=== PATIENT | female | born 1945 | race Caucasian/White ===

== ENCOUNTER 2016-04-22 01:22 | Inpatient (IN) | payer MEDICARE ==
[~2016-04-22] VITALS: Ht 160 cm; Wt 117.8 kg
[2016-04-22] VITALS (19 sets, daily range): BP systolic 117–147; BP diastolic 50–64; PULSE 63–73; RESP 12–22; O2SAT 92–99
[~2016-04-22 01:22] MED LIST: ALLO300T2 PO; AMLO5TAB2 PO; ASPI-973 PO; ATEN50TA PO; CLOP75TA3 PO; DULO60CA42 PO; FAMO40TA6 PO; INSU100I18 SUBQ; NITR0.4T SL; PRAV80TA2 PO; UBID200C2 PO; Vitamin B-12 PO
[2016-04-22] MEDS ORDERED: 0.9% Sodium Chloride 1,000 ML IV ONE (06:50)
[2016-04-22 08:02] LABS: BASOPHILS % (AUTO) 0.3 % (0-3); EOSINOPHILS % (AUTO) 3.4 % (0-5); MONOCYTES % (AUTO) 5.3 % (4-12); Mean Corpuscular Hemoglobin 28.3 pg (27.0-35.0); Mean Corpuscular Volume 89.9 fL (81-100); NEUTROPHILS % (AUTO) 67.2 % (40-74); Platelet Count 259 bil/L (150-400)
[2016-04-22] MEDS: Sodium Chloride LOK Flush 10 mL Syringe IVFLUSH SCH ×2 (08:30→18:25)
[2016-04-22] MEDS ORDERED: Heparin 1,000 Unit/mL 10 mL Inj ONE ×3 (08:46→10:20)
[2016-04-22] MEDS ORDERED: Heparin 1,000 Units/500 mL NS Premix IV ONE (08:46)
[2016-04-22] MEDS ORDERED: 0.9% Sodium Chloride 1,000 ML ONE (08:46)
[2016-04-22] MEDS ORDERED: Nitroglycerin 50,000 mcg/250 mL D5W Premix IV ONE (08:47)
[2016-04-22 09:26] LABS: APPEARANCE,URINE HAZY (CLEAR,HAZY); COLOR,URINE STRAW (YELLOW); OCCULT BLOOD,URINE TRACE (NEGATIVE); UROBILINOGEN,URINE NORMAL (NORMAL)
[2016-04-22] MEDS ORDERED: fentaNYL-PF 50 mCg/mL 2 mL Inj ONE (09:36)
--- NOTE | 2016-04-22 09:52 | NUR ---
MARGIE Admit to [facility] 3 at 0740. at bedside. Patient denies pain. HL X 2 placed, NS at 100cc/hr, labs obtained and MD informed. Urine dip done with negative results. UA sent. Consent confirmed. History and medications reviewed. Pre-procedure teaching done and questions answered.
[2016-04-22] MEDS ORDERED: Atropine 1 mg/10 mL (Code) Syringe ONE (10:19)
[2016-04-22] MEDS ORDERED: Alum-Mag Hydrox-Simeth 30 mL Suspension ONE (11:30)
--- NOTE | 2016-04-22 11:40 | DI95 ---
[address] [address] INTERVENTIONAL CARDIAC CATHETERIZATION PATIENT: CRISTHIAN ARREDONDO : 1945 MR#: [id number] ADMIT: 04/22/2016 JOB ID: [id number] PROCEDURE: Selective right and left coronary angiography, left heart catheterization, percutaneous intervention on the LAD, diagonal, and on 1st obtuse marginal branch of the circumflex. INDICATION: Recurrent chest pain. Known coronary artery disease. PROCEDURAL DETAILS: These are well enumerated in the procedure log, to which the reader is referred. Briefly, a right femoral approach, 6-Vietnamese system. ANGIOGRAPHIC FINDINGS: 1. Left main: No significant disease. 2. LAD is a moderate caliber transapical vessel. It has stents in its mid to proximal portion. These stents are patent. In the mid to distal part there is an eccentric 40% lesion. The first major diagonal has a tight 90% lesion in its ostium. This seems to have progressed. 3. Circumflex is nondominant. The first obtuse marginal branch, which is about a 2 mm vessel, has a long tubular stenosis of 90+%. Previously placed stents in the circumflex are patent as well. 4. Right coronary artery is dominant. It has mild diffuse disease of 20%-30%. PDA has 20%-30% lesion. No critical stenosis is noted. 5. Left heart catheterization revealed an LVEDP of 13. There was no gradient upon pullback. Contractility is preserved. Ejection fraction is estimated to be around 65%. INTERVENTIONAL DETAILS: We then took a Voda guide and placed a Runthrough wire in the diagonal branch and a BMW in the LAD. Balloon inflations with a 2.0 balloon was done in the LAD and then kissing balloon inflations were done. There was a lot of elastic recoil, and not unexpectedly there was also probable dissection in the ostium of the diagonal. This was tackled with prolonged balloon inflations with a 2.25 balloon. Following that, simultaneous kissing balloon inflations were done in the diagonal and the LAD. There was about a 30%-40% residual in the ostium of the LAD; however, I did not want to put a stent in the diagonal and hence accepted this result. We then proceeded ahead with an intervention on the obtuse marginal branch. OM was treated with balloon angioplasty with a 1.5 balloon. I deliberately chose not to stent this small caliber vessel as it would have required a long area of stenting that would have extended all the way up to the ostium of this vessel. Final angiographic results in this vessel were also acceptable. In summary, successful two-vessel balloon angioplasty.
[2016-04-22] MEDS ORDERED: Atropine 1 mg/10 mL (Code) Syringe IVPUSH PRN (12:30)
[2016-04-22] MEDS ORDERED: Alum-Mag Hydrox-Simeth 30 mL Suspension PO ONE (12:30)
[2016-04-22] MEDS ORDERED: 0.9% Sodium Chloride 250 ML BOLUS IV PRN (12:30)
[2016-04-22] MEDS ORDERED: Sodium Chloride LOK Flush 10 mL Syringe IVFLUSH PRN (12:30)
[2016-04-22] MEDS ORDERED: Ondansetron 2 mg/mL 2 mL Inj IVPUSH PRN (12:30)
[2016-04-22] MEDS ORDERED: 0.9% Sodium Chloride 400 ML (4 HRS) IV ONE (12:30)
--- NOTE | 2016-04-22 14:31 | NUR ---
[facility] to [facility] Patient arrived to room 2004 at approximately 1415. No pain on palp at right groin site, soft to the touch, no bleeding. Pt able ambulate to bathroom with SBA. Right groin site checked post bathroom, soft to touch, no pain on palp, no signs of bleeding. Pt resting comfortably with at bedside. Addendum: 04/24/16 at 1116 by SHYLA IRVIN RN Strong bilateral pulses upon arrival from [facility].
--- NOTE | 2016-04-22 14:37 | NUR ---
MARGIE Patient return from [facility] at 1125. at bedside. Right groin angioseal without bleeding or hematoma. Pedal pulses present. Patient denies pain but C/O heartburn. Mylanta 30cc resolved heartburn. Patient sleeping but wakes to voice. Transfer to room 2004 by bed at 1400. Report to receiving RN. Addendum: 04/22/16 at 1503 by SHYLA IRVIN RN Strong bilateral pedal pulses.
--- NOTE | 2016-04-22 15:58 | NUR ---
Floyd This RN applied the Zio patch to left upper chest at approximately 1550. Education given with information packet.
[2016-04-22] MEDS: Vitamin B Complex/Vit C Tablet PO SCH (18:26)
[2016-04-22] MEDS: Insulin Human REGular 300 Unit/3 mL Inj - Medium SUBQ SCH ×2 (18:50→21:24)
[2016-04-22] MEDS: DULoxetine 30 mg DR Capsule PO SCH (20:13)
[2016-04-23] VITALS (9 sets, daily range): BP systolic 125–165; BP diastolic 62–82; PULSE 71–85; RESP 17–21; O2SAT 91–97
--- NOTE | 2016-04-23 00:09 | NUR ---
BLOOD SUGARS Pt A&Ox3, independent, right groin site CDI, non-tender. Pt Q6 BS checks BS 191 @ HS 1 unit given. Vitals stable, no pain, uneventful night, no other issues noted at this time. Addendum: 04/23/16 at 0420 by LETY LEGGETT RN BLOOD SUGARS Pt's blood sugars @ 0230 were 247, pt requested 5 units, pt stated that 3 units per protocol would not cover it. Pt received 5 units with no other issues noted.
[2016-04-23] MEDS: Insulin Human REGular 300 Unit/3 mL Inj - Medium SUBQ SCH ×4 (03:29→18:28)
[2016-04-23] MEDS: Sodium Chloride LOK Flush 10 mL Syringe IVFLUSH SCH ×3 (03:29→16:41)
[2016-04-23] MEDS: Vitamin B Complex/Vit C Tablet PO SCH (09:07)
[2016-04-23] MEDS ORDERED: LIP40 PO (10:16)
--- NOTE | 2016-04-23 10:27 | PCM.DIMED ---
Discharge Instructions Date of Service Apr 23, 2016 Dates of Hospitalization 04/22/2016 Discharge Diagnosis Discharge Diagnosis CAD - post Stenting to coronary arteries Medication Instructions take all medications as prescribed Diet Low fat, Low Sodium, Heart Healthy, Diabetic Activity Other (Refer to hospital instruction sheet. Avoid lifting over 10 lbs, vigorous activity for a week. No bathing in a tub for a week. You may shower and clean gently with soap and water to the right groin tomorrow. You may drive starting on Monday. ) Call your provider Fever or Chills, Shortness of breath, Bleeding, Chest pain, Weakness (unilateral ), Other (Numbness tingling or pain in the right leg or foot. Monitor for fever chills. Call this office if any questions.) Patient Instructions Follow-up plan We will arrange for a recheck of your kidney functions and electrolytes for monday the . Call the office in the afternoon ) if you have not heard from us yet. Follow in the office in the next few weeks ( you will be called with an appointment time) Provider: Yo Carter MD Follow-up in: 6 weeks Mid-level Provider (F9): Dano Palencia PA-C Follow-up with Mid-level in: 2 weeks Dano Palencia PA-C Apr 23, 2016 10:27
--- NOTE | 2016-04-23 12:36 | PCM.PNCARD ---
Subjective Date of service Apr 23, 2016 Chief Complaint CAD History of Present Illness Mrs. Callahan 70-year-old woman with known history of coronary artery disease and insulin-dependent diabetes. She had recently been seen in the office by Dr. Carter where he noted an increase in her anginal symptoms. He elected to bring her to the [facility] on 04/22/2016 at which point he performed PCI / balloon angioplasty to her LAD, 1st diagonal and first OM. His dictation from the procedure mentions probable dissection in the ostium of the diagonal which was tacked with prolonged balloon inflations. No stenting was performed. Subjective: # General - denies fever chills. Had some insomnia last night # NECK-denies pain or swollen glands # Chest-denies dyspnea, cough. Admits to left upper chest wall tenderness to palpation with some radiation to her back. # CV-no recurring anginal pain. Minor swelling noted in her legs. Denies coldness to extremities. # Abdomen- denies focal pain # -claims urinary output has been decreased, no urgency frequency. # Neuro-denies numbness tingling or weakness to extremities # Integument-denies bruising, discoloration. Exam Vital Signs Vital Sign - Last Date Time Temp Pulse Resp B/P Pulse Ox O2 Delivery O2 Flow Rate FiO2 04/23/16 09:04 85 04/23/16 07:47 36.8 17 125/62 91 Room Air 04/22/16 14:01 2.00 Intake and Output 04/22/16 04/22/16 04/23/16 Cumulative From/Thru 15:00 23:00 07:00 04/22/16 08:23 - 04/23/16 04:01 Intake Total 775 ml 600 ml 1375 ml Balance 775 ml 600 ml 1375 ml Intake Oral 400 ml 600 ml 1000 ml IV Total 375 ml 375 ml # Voids 1 3 4 Additional Information: # General- sitting up in bed in no apparent distress. # HEENT-eyes clear PERRLA # Chest-clear to auscultation bilaterally # CV-regular rate and rhythm without murmur, gallop or rub. Lower extremities appropriately warm with normal pulses distally. No bruit or significant hematoma to right groin. Trace to 1+ edema lower extremities # Abdomen-soft nontender. # Neuro-appropriate sensation to touch and normal motor to right lower extremity. # Integument-no significant bruising or hematoma to right groin. Integument otherwise benign. Lab and Diagnostics Result Diagram: 04/22/16 0758 04/23/16 1000 12-lead ECG Telemetry benign overnight. Assessment & Plan Assessment This patient is a 70-year-old woman with history of CAD recent PCI /balloon angioplasty to her LAD, first diagonal and first OM. It was probable dissection in the ostium of the diagonal branch. She also has insulin- dependent diabetes. Patient rested comfortably overnight although reportedly did not sleep much. She has been having left sided chest tenderness to palpation but no classic anginal symptoms. She denies palpitation. She claims she has been drinking "a lot of fluids" but has not been producing much urine. Basic metabolic panel shows worsening renal functions/progressively elevating creatinine and a stable yet elevated potassium. Unfortunately her urine output has not been measured thus far during her stay. From a cardiac standpoint she appears to be stable however her declining renal functions are somewhat concerning. The nurse did report an elevated temperature however upon reevaluating the patient appears an axillary reading was used. I personally rechecked her temperature and it was 98.3. On April 22 she did have an elevated white blood cell count. I will repeat a CBC tomorrow morning and reevaluate her at that time. Problems: Plan #CAD -continue with clopidogrel 75 mg daily, aspirin 81 mg daily. Continue with her pravastatin 80 mg daily while in the hospital. I will be changing this to atorvastatin 40 mg one half to one pill daily as tolerated upon discharge. #Hypertension- continue amlodipine 5 mg twice a day, atenolol 50 mg twice a day. #Acute renal insufficiency- we will have her push oral fluids as tolerated. Recheck BMP in the morning. Closely monitor her fluid intake and output. Daily bedside standing weight checks while she is here. #Insulin-dependent diabetes mellitus- continue with glucose monitoring and insulin per sliding scale protocol. #Leukocytosis- noted on labs from 04/22. I will repeat these in the morning. If symptoms of infection should appear will ask hospitalist to help evaluate further. Discharge Plan: We will keep her overnight to reevaluate BMP and see cbc in the morning. Plan we will be to continue to hydrate her with oral fluids and discharge on 2016 if renal functions are stable or resolving. Attending Statement I have interviewed and examined the patient, and discussed with Lenny Palencia. Agree with above. Will await results of labs tomorrow. She states she had poor po intake several days before procedure due to viral illness and thus may be volume contracted. Dano Palencia PA-C Apr 23, 2016 11:49 Dano Bartlett MD Apr 23, 2016 16:53
[2016-04-23] MEDS: DULoxetine 30 mg DR Capsule PO SCH (20:07)
--- NOTE | 2016-04-23 22:12 | NUR ---
CREATININE/POTASSIUM/OUTPUT Pt's labs this morning showed an increased creatinine @ 1.63 and K+ @ 5.5. Pt's I&O's on day shift were 600+ in and 850 out. Pt is otherwise feeling great. Pt denies pain, right groin site is CDI with no signs of hematoma. Pt was encouraged to continue to drink plenty of fluids and was informed that she would have labs drawn in the AM to revaluate for discharge tomorrow. Addendum: 04/24/16 at 0408 by LETY LEGGETT RN LABS AM labs show K+, BUN and Creat. trending up. K+ 5.7 BUN 54 Creatinine 2.86 GFR trending down to 23.
[2016-04-24] VITALS (9 sets, daily range): BP systolic 123–149; BP diastolic 56–81; PULSE 71–87; RESP 16–20; O2SAT 92–97
[2016-04-24] MEDS: Sodium Chloride LOK Flush 10 mL Syringe IVFLUSH SCH ×3 (00:30→15:28)
[2016-04-24] MEDS: Insulin Human REGular 300 Unit/3 mL Inj - Medium SUBQ SCH ×2 (03:35→09:08)
[2016-04-24] MEDS: Vitamin B Complex/Vit C Tablet PO SCH (09:09)
[2016-04-24 09:11] LABS: Mean Corpuscular Hemoglobin 28.5 pg (27.0-35.0); Mean Corpuscular Volume 87.4 fL (81-100)
--- NOTE | 2016-04-24 10:04 | DRSVH ---
PROCEDURE: X-RAY CHEST, TWO VIEWS ([id number]) INDICATIONS: r/o effusion vs. chf TECHNIQUE: 2 views of the chest were acquired. COMPARISON: None. FINDINGS: Surgical changes and devices: surg rn leads are seen over the chest. Lungs and pleura: There are increased interstitial markings. There is some thickening of the fissures and no pleural effusions. Mediastinum: Mediastinal contours are normal. Heart size is normal. Bones and chest wall: No suspicious bony abnormalities. Soft tissues appear unremarkable. IMPRESSION: Interstitial pulmonary edema is occurring. Dictated by: Romulo Marc M.D. on 04/24/2016 at 10:01 Approved by: Romulo Marc M.D. on 04/24/2016 at 10:02
--- NOTE | 2016-04-24 11:16 | NUR ---
Not feeling well Patient stated she felt flu-like, like she had a fever. Stated she was shivering. Skin temp felt warm. t 36.8, BP 123/62, P 81. Room temperature was set at 75 degrees with door closed. Listened and encouraged. Provided water and offered warm blanket. Care continues.
--- NOTE | 2016-04-24 12:23 | NUR ---
Social Work: Initial Assessment D: Per EMR review, pt is a 70 year old female here for scheduled heart cath procedure on 04/22; pt made inpatient on 04/24 due to declining renal function. Pt is [facility] Medicare with no LTC insurance or VA benefits. PCP is Dr. Abhilash Wang. NOK is Charlie Callahan, spouse, . Advanced directives not completed- information provided by HOME ADMINISTRATOR. Readmit not entered at this time. HOME ADMINISTRATOR met with pt at bedside. Sw role and information provided. See initial assessment. Pt lives with her spouse in a split-level home in [place]. Pt is I with ADLs and uses no DME. Pt states she has approx. 8 stairs to enter her home and 7-8 stairs in her home. Pt does not drive and relies on her spouse for transport. Pt has never had HH or jail. Pt anticipates no home needs at discharge but provided with HH choice list to review. A: Pt who is I at baseline. P: Evolving; Anticipate pt to discharge home via POV with no sw needs; HOME ADMINISTRATOR to continue to follow and r/o HH or SNF if pt's needs advance. IVAN Philippe Addendum: 04/24/16 at 1237 by BRYSON VARGAS Amended: Links added.
--- NOTE | 2016-04-24 12:32 | PCM.PNCARD ---
Subjective Date of service Apr 24, 2016 Chief Complaint CAD History of Present Illness Mrs. Callahan 70-year-old woman with known history of coronary artery disease and insulin-dependent diabetes. She had recently been seen in the office by Dr. Carter where he noted an increase in her anginal symptoms. He elected to bring her to the [facility] on 04/22/2016 at which point he performed PCI / balloon angioplasty to her LAD, 1st diagonal and first OM. His dictation from the procedure mentions probable dissection in the ostium of the diagonal which was tacked with prolonged balloon inflations. No stenting was performed. Patient was initially kept overnight and monitored. Although she reports feeling relatively well from a cardiac standpoint she reported some mild headache and sinus pressure. More concerning, her renal functions deteriorated with subsequent elevation of her potassium. Speaking with Dr. Bartlett we elected to keep her another night to closely monitor renal functions. Review of labs this morning shows progressive GILES with presumed ATN most likely related to her diabetes and the contrast from the heart catheterization. She reports this morning feeling a little bit more dyspnea over night slight cough. Progression of her headache symptoms associated with post nasal drip, sinus pressure and fullness in her right ear and pressure behind her right eye. She denies chest pain or palpitation. She has not noticed increased edema. She claims she is having normal bowel movements without melena or blood. She feels her urine output is decreased but denies urgency or frequency. She denies sx to right groin or right leg. Subjective: Review of systems negative other than mentioned above. Exam Vital Signs Vital Sign - Last Date Time Temp Pulse Resp B/P Pulse Ox O2 Delivery O2 Flow Rate FiO2 04/24/16 09:04 36.8 81 20 123/62 95 04/24/16 04:42 Room Air 04/22/16 14:01 2.00 Intake and Output 04/23/16 04/23/16 04/24/16 Cumulative From/Thru 15:00 23:00 07:00 04/22/16 08:23 - 04/24/16 04:42 Intake Total 600 ml 440 ml 2415 ml Output Total 850 ml 550 ml 1400 ml Balance -250 ml -110 ml 1015 ml Intake Oral 600 ml 440 ml 2040 ml IV Total 375 ml Output Urine Total 850 ml 550 ml 1400 ml # Voids 4 Additional Information: # Gen. patient sitting quietly appears in good spirits, no apparent distress. # HEENT- eyes clear PERRLA pharynx moist benign without significant erythema or postnasal drip. # Neck - supple without adenopathy or tenderness. # Chest- slight crackles left lower lobe, otherwise CTA. # Cardiovascular- regular rate and rhythm without murmur click or rub, gallop. 1+ edema lower extremities pulses 2+ DP legs. # Abdomen- soft nontender # Integument- benign # Neurologic- alert and oriented 4, nonfocal for deficit. # Psych- mood appropriate for situation. Lab and Diagnostics Result Diagram: 04/24/1690104/24/16 022 X-Rays, CTs and MRIs RADIOLOGIST IMPRESSION: Interstitial pulmonary edema is occurring. Assessment & Plan Assessment This patient is a 70-year-old woman with history of CAD recent PCI /balloon angioplasty to her LAD, first diagonal and first OM. It was probable dissection in the ostium of the diagonal branch. She also has insulin- dependent diabetes. Patient is complaining of worsening headache and sinus symptoms. There is question of mild transient fever in the last 24 hours. At this point we are more concerned with her progressively worsening renal functions, GILES with probable ATN secondary to diabetes and contrast media during PCI. Problems: Plan #CAD -continue with clopidogrel 75 mg daily, aspirin 81 mg daily. Continue with her pravastatin 80 mg daily while in the hospital. I will be changing this to atorvastatin 40 mg one half to one pill daily as tolerated upon discharge. #Hypertension- continue amlodipine 5 mg twice a day, atenolol 50 mg twice a day. #Acute renal insufficiency and probable ATN-renal functions deteriorated further overnight with an associated increase in potassium. In light of this I have kindly asked the hospitalist Dr. Cornejo to assist with management. BMP and BNP are ordered this morning with creatinine continuing to trend upward/ BUN stable but elevated. Closely monitor her fluid intake and output. Daily bedside standing weight checks while she is here. Dr Cornejo to evaluate GILES and considering Nephrology consult given current significant worsening trend. #Headache/sinus pain with possible transient temperature elevation- I have asked Dr. Cornejo to evaluate to evaluate the patient further for infectious process. #Insulin-dependent diabetes mellitus- further management and control per hospitalist. #Hyperkalemia- in the setting of giles. This is stable ( decreased back to 5.5) EKG is stable. Potassium elevation may respond to gentle diuresis. Discussed with Dr Bartlett and Dr Cornejo. Dr Cornejo considering Nephrology consult. Attending Statement Patient interviewed and examined, discussed with Lenny Palencia PA-C, and Dr. Steven Cornejo. Agree with above. Now has acute on chronic kidney failure, likely due to contrast nephropathy. Asymptomatic except mild SOB and reported wheezing and "abdominal fullness". On my exam, lungs clear without rales or wheeze, JVP likely 7-8 cm. ECG shows no concerning changes of hyperkalemia. Agree with nephrology consult and attempt diuresis with furosemide, follow renal fxn and potassium. Dr. Carter will be available tomorrow to see Dano Al PA-C Apr 24, 2016 09:49 Dano Bartlett MD Apr 24, 2016 15:09
[2016-04-24] MEDS ORDERED: Glucose 40% Oral Gel 15 Gm Tube PO PRN (13:10)
[2016-04-24] MEDS ORDERED: Furosemide 10 mg/mL 4 mL Inj IVPUSH ONE (14:25)
--- NOTE | 2016-04-24 14:36 | PCM.HPMED ---
Subjective Date of Service Apr 24, 2016 Primary Provider: Admitting Physician: Primary Care Physician: Katya,Physician Attending Physician: Yo Carter MD Chief Complaint: 70-year-old woman with CAD, type II diabetes mellitus, hypertension, obesity class III presents with acute kidney injury following percutaneous cardiac intervention on 04/22 History of Present Illness: The patient was in her usual state of health when she presented for elective cardiac PCI on 04/22. She experienced recent unstable angina with increasing frequency and slight increase in duration of her usual chest pain complaint. Typically her chest pain occurs with effort and resolves with one nitroglycerin within 5 minutes. She underwent PCI with balloon angioplasty of the LAD, diagonal and OM. She has had no chest pain since. Follow-up blood tests reveal rising creatinine from baseline of 1.19 prior to procedure currently to 3.2. She is admitted for management of acute kidney injury. In the last 24 hours she notes increased shortness of breath with mild orthopnea. She noted wheezing and cough yesterday which is unusual for her. She endorses some lower left back pain with coughing, but this is different from her anginal complaint which is anterior chest pain. She also feels she is having sinus congestion, fevers and chills, loss of appetite, and mild discomfort in sinuses, according to which side she sleeps on. She states she had a protracted URI 6 weeks ago which resolved only after antibiotics personally 3 weeks prior to admission. She states that her current symptoms feel similar to that. She currently notes reduced urine output. She has had nephrolithiasis in the past but no recent symptomatic renal colic. She has no prior history of parenchymal renal disease. She has had long-standing type II diabetes but is not known to have diabetic nephropathy. She does have diabetic neuropathy. Review of Systems: 10 system ROS was performed and significant findings are noted in the history of present illness and PMH Allergies Coded Allergies: tetracycline (Verified Allergy, Severe, 04/21/16) sodium phosphate (Verified Allergy, Unknown, 04/21/16) [id number]-Xrz Reductase Inhibitor (Verified Adverse Reaction, Severe, ) Sulfa (Sulfonamide Antibiotics) (Verified Adverse Reaction, Severe, ) acetaminophen (Unverified Adverse Reaction, Severe, 06/24/13) codeine (Verified Adverse Reaction, Severe, 06/24/13) dexamethasone (Verified Adverse Reaction, Severe, 06/24/13) doxycycline (Unverified Adverse Reaction, Severe, 06/24/13) hydrocodone (Unverified Adverse Reaction, Severe, 06/24/13) lisinopril (Unverified Adverse Reaction, Severe, 04/21/16) oxycodone (Unverified Adverse Reaction, Severe, 06/24/13) Adhesives (Unverified Adverse Reaction, Unknown, 06/24/13) Uncoded Allergies: a reductase inhibitors (Allergy, Unknown, 04/21/16) bitartrate (Allergy, Unknown, 04/21/16) Home Medications Allopurinol 300 mg daily Amlodipine 10 mg daily Aspirin 81 mg daily Atenolol 550 mg twice a day Atorvastatin 40 mg daily Clopidogrel 75 mg daily Duloxetine 60 mg daily Famotidine 40 mg twice a day Insulin N 60 units twice a day, insulin lispro 30 units twice a day Pravastatin 80 mg daily at bedtime Nitroglycerin when necessary Vitamin B12 by mouth daily PMH # coronary artery disease - status post RCA stent in 2014, LVEF was 70% at that time # Type II diabetes mellitus # Hypertension # DJD # obesity class III # History of nephrolithiasis #hyperuricemia Family History No familial incidence of renal failure 3 children alive and well Social History Occupation: retired Hx Alcohol Use: No Hx Substance Use: No Smoking Status: Former Smoker Living Arrangement: with Family Additional Information Very sedentary. Lives with . Balanced diet. Exam Vital Signs Vital Sign - Last Date Time Temp Pulse Resp B/P Pulse Ox O2 Delivery O2 Flow Rate FiO2 04/24/16 11:38 36.9 84 16 141/81 92 Room Air 04/22/16 14:01 2.00 Intake and Output 04/23/16 04/23/16 04/24/16 Cumulative From/Thru 15:00 23:00 07:00 04/22/16 08:23 - 04/24/16 04:42 Intake Total 600 ml 440 ml 2415 ml Output Total 850 ml 550 ml 1400 ml Balance -250 ml -110 ml 1015 ml Intake Oral 600 ml 440 ml 2040 ml IV Total 375 ml Output Urine Total 850 ml 550 ml 1400 ml # Voids 4 Exam Constitutional: Obese woman appears comfortable; no acute distress; vital signs noted Eyes: sclerae anicteric, no conjunctival pallor, ENMT: ears, nose atraumatic; oral mucosa moist Neck: supple, difficult to assess JVP Chest: symmetric, no pain or lesions Resp: auscultation clear, no wheezes, rales or dullness Cardiac: S1, S2, regular, no murmur Abdomen: bowel sounds present, nontender, no organomegaly Musculoskeletal: no joints with acute erythema, swelling Skin and soft tissues: no rash; no pitting edema Peripheral pulses: normal at wrist, feet Lymphatic: no adenopathy cervical Neurological: Cranial Nerves - face symmetric Reflexes - BJ, KJ symmetric diminished Motor - 5/5 strength, normal tone Coordination - normal movement, no tremor Sensory - light touch intact, monofilament 12/12 Psych & Mental Status - oriented Lab and Diagnostics Labs Serum creatinine baseline 1.19 ProBNP 5975 Result Diagram: 04/24/1690104/24/16901 X-Rays, CTs and MRIs PROCEDURE: X-RAY CHEST, TWO VIEWS ([id number]) IMPRESSION: Interstitial pulmonary edema is occurring. Dictated by: Romulo Marc M.D. on 04/24/2016 at 10:01 . Additional Diagnostics: INTERVENTIONAL CARDIAC CATHETERIZATION PATIENT: CRISTHIAN ARREDONDO : 1945 ANGIOGRAPHIC FINDINGS: 1. Left main: No significant disease. 2. LAD is a moderate caliber transapical vessel. It has stents in its mid to proximal portion. These stents are patent. In the mid to distal part there is an eccentric 40% lesion. The first major diagonal has a tight 90% lesion in its ostium. This seems to have progressed. 3. Circumflex is nondominant. The first obtuse marginal branch, which is about a 2 mm vessel, has a long tubular stenosis of 90+%. Previously placed stents in the circumflex are patent as well. 4. Right coronary artery is dominant. It has mild diffuse disease of 20%-30%. PDA has 20%-30% lesion. No critical stenosis is noted. 5. Left heart catheterization revealed an LVEDP of 13. There was no gradient upon pullback. Contractility is preserved. Ejection fraction is estimated to be around 65%. INTERVENTIONAL DETAILS: We then took a Voda guide and placed a Runthrough wire in the diagonal branch and a BMW in the LAD. Balloon inflations with a 2.0 balloon was done in the LAD and then kissing balloon inflations were done. There was a lot of elastic recoil, and not unexpectedly there was also probable dissection in the ostium of the diagonal. This was tackled with prolonged balloon inflations with a 2.25 balloon. Following that, simultaneous kissing balloon inflations were done in the diagonal and the LAD. There was about a 30%-40% residual in the ostium of the LAD; however, I did not want to put a stent in the diagonal and hence accepted this result. We then proceeded ahead with an intervention on the obtuse marginal branch. OM was treated with balloon angioplasty with a 1.5 balloon. I deliberately chose not to stent this small caliber vessel as it would have required a long area of stenting that would have extended all the way up to the ostium of this vessel. Final angiographic results in this vessel were also acceptable. In summary, successful two-vessel balloon angioplasty. Yo Carter MD 04/22/16 1112 . Assessment & Plan 70-year-old woman with diabetes, hypertension, morbid obesity and CAD presents with post PCI acute kidney injury Active and/or high risk problems: # Acute kidney injury, present on admission. Probable ATN due to dye load, no evidence of hypotensive insult. Currently patient seems oliguric with some evidence of fluid overload. Patient previously on famotidine but no current drug suspicious for eosinophilic interstitial nephritis, no fever. History of nephrolithiasis but coincidental obstructive nephropathy at this time seems unlikely. - Urine for fractional excretion of sodium - Renal ultrasound - Nephrology consult - Daily electrolyte panel - We will not initiate IV fluids at this time due to evidence of fluid overload - Allopurinol renal dose adjustment # Coronary artery disease - Continue dual antiplatelet therapy - Monitor symptoms - Cardiology following # Acute diastolic congestive heart failure. Her current symptoms of orthopnea and cough with chest x-ray revealing pulmonary congestion are consistent with congestive heart failure. Recent echocardiograms have been normal LVEF. Likely diastolic dysfunction due to hypertension and type II diabetes. - Diuretic management, to be guided by nephrology health management consultant - Other cardiac medications as per the cardiology service # Type II diabetes mellitus - 4 times a day capillary blood glucose - Glucose control goals: Random less than 180, fasting less than 140, none less than 70 - Insulin as needed, divided 50-50 long-acting and nutritional/correctional Stable and/or resolving problems: # Hypertension - Continue current medications - amlodipine, atenolol # Diabetic neuropathy - Continue duloxetine Pain Evaluation: Adequate Pain Control VTE Prophylaxis: Sub-Q Heparin (Unfractionated) Resuscitation Status: CPR: Attempt Resuscitation Time spent 60 minutes Jarett Cornejo MD Apr 24, 2016 14:36
--- NOTE | 2016-04-24 15:30 | DRSVH ---
PROCEDURE: US RETROPERITONEAL SONOGRAM ([id number]) INDICATIONS: GILES TECHNIQUE: Real-time scanning was performed of the kidneys and bladder, with image documentation. COMPARISON: None. FINDINGS: Kidneys: Kidneys are normal in size. Right kidney measures 11.3 cm long; left kidney measures 13.8 cm long. Right renal cortical thickness is 1.1 cm; left renal cortical thickness is 1.1 cm. Renal c ortical echotexture is normal. No hydronephrosis or nephrolithiasis. No suspicious solid mass lesio ns. Bladder: Pre-void bladder volume is 164 mL. Post-void residual is 7 mL. Pre-void images demonstrat e no intraluminal masses or stones. On pre-void images, neither of the ureteral jets are noted with color Doppler interrogation. (Of note, ureteral jets may not be detectable in up to 25% of cases due to insufficient differences in specific gravity between ureteral and bladder urine). Miscellaneous: No free pelvic fluid. IMPRESSION: No abnormality is seen in either kidney. No evidence for obstruction. Cause of acute librado l failure is not appreciated. Dictated by: Romulo Marc M.D. on 04/24/2016 at 15:22 Approved by: Romulo Marc M.D. on 04/24/2016 at 15:28
--- NOTE | 2016-04-24 17:21 | CONS ---
[address] [address] CONSULTATION REPORT PATIENT: CRISTHIAN ARREDONDO : 1945 MR#: [id number] ADMIT: 04/22/2016 JOB ID: [id number] DATE OF SERVICE: REQUESTING PHYSICIAN: Dr. Cornejo REASON FOR CONSULTATION: 1. Management of abnormal kidney function. 2. Complaint of recurrent chest pain. PRESENT ILLNESS: This is a very pleasant, 70-year-old, lady with significant past medical history of type 2 diabetes, hypertension, dyslipidemia, coronary artery disease, status post stent placement who was admitted for an elective left heart catheterization. The patient was initially seen by Dr. Carter. Of note, she has had increase in her anginal symptoms. The patient was brought in to perform a left heart catheterization on April 22, 2016. She underwent PCI and balloon angioplasty to her LAD, 1st diagonal and 1st OM. Her initial serum creatinine prior to the procedure was 1.19. It has gradually elevated. The value today was 3.2. Of note, she has had persistent hyperkalemia. The current potassium level is 5.5. The patient is complaining of feeling weak and decreased urine output. The chest x-ray showed interstitial pulmonary edema. The patient stated that prior to the cardiac catheterization, she was sick possibly from the flu infection. The patient is not aware of having kidney disease. She does have significant past medical history of nephrolithiasis. She stated that she passed kidney stones, last episode was five years ago. She underwent cystoscopy and stone extraction a number of years ago. She had history of gout and probable uric acid stones in which she has been on allopurinol. She mentioned that two of her grandsons and granddaughter have history of kidney stones. She takes Aleve as needed, however, prior to the admission she did not take any of the pain medications. PAST MEDICAL HISTORY: 1. Obesity. 2. Type 2 diabetes. 3. Diabetic retinopathy. 4. Diabetic neuropathy. 5. Hypertension. 6. Dyslipidemia. 7. Coronary artery disease status post stenting and balloon angioplasty. 8. Fibromyalgia. 9. Gout. 10. Nephrolithiasis status post cystoscopy and stone extraction. 11. GERD. FAMILY HISTORY: She is adopted, unknown family history, however, two of her grandsons and a granddaughter had kidney stones. SOCIAL HISTORY: She is . ALLERGIES: 1. ADHESIVES. 2. STATIN. 3. SULFA. 4. ACETAMINOPHEN. 5. BITARTRATE. 6. CODEINE. 7. DEXAMETHASONE. 8. DOXYCYCLINE. 9. HYDROCODONE. 10. LISINOPRIL. 11. OXYCODONE. 12. SODIUM SULFATE. 13. TETRACYCLINE. REVIEW OF SYSTEMS: Constitutional: No fever, no chills. HEENT: No headaches. No blurred vision. Cardiovascular: No chest pain. No shortness of breath. Pulmonary: No cough. No hemoptysis. GI: No nausea, vomiting. : No dysuria. No hematuria. Decreased urine output. Skin: No rashes. No excoriation. Hematology: No active bleeding. No bruises. Endocrine: No polyuria, polydipsia. PHYSICAL EXAMINATION: Vitals: Temperature 36.9, pulse 84, respiratory rate 16, blood pressure 141/81, pulse is 92 on room air. General appearance: Awake, alert, oriented x3. In no acute distress. Very pleasant. HEENT: No pallor, no jaundice, no JVD, no lymphadenopathy. No thyroid enlargement. PERRLA, atraumatic. Moist mucous membranes. Heart: Regular rhythm. Normal S1, S2. No murmurs, rubs, or gallops. Lungs: Decreased breath sounds at bases. No wheezing. No rhonchi. No rales. Abdomen is soft, obese, active bowel sounds. Nontender, nondistended. No hepatosplenomegaly. Extremities: 1+ edema on the lower extremities. Good dorsalis pedis pulses. No cholesterol emboli stigmata. LABORATORY: Sodium 136, potassium 5.5, chloride 97, bicarb 22, BUN 55, creatinine 3.2, glucose 218. ProBNP 5975. UA specific gravity 1.020, pH 6.0, protein 100, 0-2 RBCs, 0-5 WBCs, hemoglobin 11.3, WBC 12.3. ASSESSMENT: 1. Acute kidney injury. Her initial serum creatinine was 1.19. After the left heart catheterization, her serum creatinine has risen to 3.2 today. The patient is complaining of decreased urine output. She does not have significant shortness of breath. The etiology of acute kidney injury is likely due to contrast-induced nephropathy. Other possibly is cholesterol emboli. However, I think it is less likely. At this point, I will repeat her UA, check urine eosinophils, check urine protein to creatinine ratio, and order kidney sonogram to rule out obstruction given significant past history of nephrolithiasis. There is no indication for dialysis at this moment. We will continue supportive treatment. I will give her IV diuretics to see if it will enhance her urine output. IV diuretics would not change the course of the disease. I expect that her kidney function may rise higher tomorrow until it peaks and eventually will come down. Avoid nephrotoxins at this moment. I would not start an CECY inhibitor or ARB at this point until she is more stable. 2. Monitor her volume status and the kidney function on a daily basis. 3. Coronary artery disease status post stenting and balloon angioplasty. 4. Type 2 diabetes with diabetic retinopathy, possible diabetic nephropathy. Will order a urine protein creatinine ratio. 5. Hypertension. 6. Acute on chronic diastolic heart failure. Thank you, Dr. Cornejo, for allowing me to participate in the care of your patient. We will monitor along with you. MARIA A
[2016-04-24] MEDS ORDERED: Insulin LISPRO 300 Unit/3 mL Inj SUBQ SCH (17:30)
[2016-04-24] MEDS: Insulin LISPRO 300 Unit/3 mL Inj SUBQ SCH ×2 (17:40→20:34)
--- NOTE | 2016-04-24 17:44 | NUR ---
Urine out After administering Lasix, pt voided 550 ml, within one hour. Pt states her eyelids are more swollen than yesterday. Care continues.
[2016-04-24] MEDS: Insulin GLARgine 100 Unit/mL Syringe SUBQ SCH (20:33)
[2016-04-24] MEDS: DULoxetine 30 mg DR Capsule PO SCH (20:36)
[2016-04-24] MEDS ORDERED: Insulin GLARgine 100 Unit/mL Syringe SUBQ SCH (21:00)
[2016-04-25] VITALS (8 sets, daily range): BP systolic 106–138; BP diastolic 64–82; PULSE 76–98; RESP 16–20; O2SAT 87–98
[2016-04-25] MEDS: Sodium Chloride LOK Flush 10 mL Syringe IVFLUSH SCH ×3 (00:30→16:42)
--- NOTE | 2016-04-25 00:49 | NUR ---
OXYGEN/LOOSE STOOLS Pt was sating in the mid 80's while awake on second vital check. Pt c/o increased wheezing this evening, pt originally put on 2L nasal cannula, sat'd high 80's, increased to 4L nasal cannula, sating mid 90's. Pt reported first episode of loose stools while in the hospital. Pt did have a low grade temp of 99.3. No other issues noted at this time. Addendum: 04/25/16 at 0309 by LETY LEGGETT RN OXYGEN/LOOSE STOOLS Pt has had 2 loose stools @ this time. Pt removed 4L nasal cannula to use restroom and was sating high 70's to low 80's on RA. Continued with 4L nasal cannula throughout the night.
[2016-04-25 03:16] LABS: Magnesium 2.1 mg/dL (1.6-2.6); Phosphorus 5.7 mg/dL (2.5-4.9)
--- NOTE | 2016-04-25 04:08 | NUR ---
BLOOD SUGARS Pt had a new order for Lantus 90 units along with 4 units regular @ HS. Blood sugars were 253 and rechecked @ 0230 and were 209. Pt denies any s/s of hypo/hyperglycemia. No other issues noted @ this time.
--- NOTE | 2016-04-25 06:58 | PCM.PNMED ---
Subjective Date of Service Apr 25, 2016 Subjective Pt with inc oxygen demands, on 4L with overnight notable desaturations to low 80 's on RA - denies cp/f/dizziness/n/v - has been having some loose stool 4x - nonbloody Exam Vital Signs Vital Sign - Last Date Time Temp Pulse Resp B/P Pulse Ox O2 Delivery O2 Flow Rate FiO2 04/25/16 02:30 37.2 98 20 135/71 98 Nasal Cannula 4.00 Intake and Output 04/24/16 04/24/16 04/25/16 Cumulative From/Thru 15:00 23:00 07:00 04/22/16 08:23 - 04/25/16 06:13 Intake Total 840 ml 400 ml 3655 ml Output Total 1100 ml 600 ml 3100 ml Balance -260 ml -200 ml 555 ml Intake Oral 840 ml 400 ml 3280 ml IV Total 375 ml Output Urine Total 1100 ml 600 ml 3100 ml # Voids 2 6 # Bowel Movements 1 1 Exam Constitutional: Obese woman appears comfortable; no acute distress Eyes: sclerae anicteric, no conjunctival pallor, ENMT: ears, nose atraumatic; oral mucosa moist Neck: supple, difficult to assess JVP Chest: symmetric, no pain or lesions Resp: auscultation clear, no wheezes, rales or dullness Cardiac: S1, S2, regular, no murmur Abdomen: bowel sounds present, nontender, no organomegaly Musculoskeletal: no joints with acute erythema, swelling Skin and soft tissues: no rash; no pitting edema Peripheral pulses: normal at wrist, feet Lymphatic: no adenopathy cervical Neurological: CN 2-12 GI IVs and Medications Medications Reviewed: Medications were reviewed in detail Lab and Diagnostics Result Diagram: 04/24/16 0902 04/25/16 0214 X-Rays, CTs and MRIs PROCEDURE: X-RAY CHEST, TWO VIEWS ([id number]) IMPRESSION: Interstitial pulmonary edema is occurring. Dictated by: Romulo Marc M.D. on 04/24/2016 at 10:01 . Additional Diagnostics INTERVENTIONAL CARDIAC CATHETERIZATION PATIENT: CRISTHIAN ARREDONDO : 1945 ANGIOGRAPHIC FINDINGS: 1. Left main: No significant disease. 2. LAD is a moderate caliber transapical vessel. It has stents in its mid to proximal portion. These stents are patent. In the mid to distal part there is an eccentric 40% lesion. The first major diagonal has a tight 90% lesion in its ostium. This seems to have progressed. 3. Circumflex is nondominant. The first obtuse marginal branch, which is about a 2 mm vessel, has a long tubular stenosis of 90+%. Previously placed stents in the circumflex are patent as well. 4. Right coronary artery is dominant. It has mild diffuse disease of 20%-30%. PDA has 20%-30% lesion. No critical stenosis is noted. 5. Left heart catheterization revealed an LVEDP of 13. There was no gradient upon pullback. Contractility is preserved. Ejection fraction is estimated to be around 65%. INTERVENTIONAL DETAILS: We then took a Voda guide and placed a Runthrough wire in the diagonal branch and a BMW in the LAD. Balloon inflations with a 2.0 balloon was done in the LAD and then kissing balloon inflations were done. There was a lot of elastic recoil, and not unexpectedly there was also probable dissection in the ostium of the diagonal. This was tackled with prolonged balloon inflations with a 2.25 balloon. Following that, simultaneous kissing balloon inflations were done in the diagonal and the LAD. There was about a 30%-40% residual in the ostium of the LAD; however, I did not want to put a stent in the diagonal and hence accepted this result. We then proceeded ahead with an intervention on the obtuse marginal branch. OM was treated with balloon angioplasty with a 1.5 balloon. I deliberately chose not to stent this small caliber vessel as it would have required a long area of stenting that would have extended all the way up to the ostium of this vessel. Final angiographic results in this vessel were also acceptable. In summary, successful two-vessel balloon angioplasty. Yo Carter MD 04/22/16 1112 . Assessment & Plan 70-year-old woman with diabetes, hypertension, morbid obesity and CAD presents with post PCI acute kidney injury Active and/or high risk problems: # Acute kidney injury, present on admission. Probable ATN due to dye load, no evidence of hypotensive insult. Currently patient seems oliguric with some evidence of fluid overload. Patient previously on famotidine but no current drug suspicious for eosinophilic interstitial nephritis, no fever. History of nephrolithiasis but coincidental obstructive nephropathy at this time seems unlikely. - Urine for fractional excretion of sodium - Renal ultrasound - Nephrology consult, appreciate recs - added diuresis to facilitate UOP - Daily electrolyte panel - no IV fluids at this time due to evidence of fluid overload - Allopurinol renal dose adjustment # Coronary artery disease - Continue dual antiplatelet therapy - Monitor symptoms - Cardiology following # Acute diastolic congestive heart failure. Her current symptoms of orthopnea and cough with chest x-ray revealing pulmonary congestion are consistent with congestive heart failure. Recent echocardiograms have been normal LVEF. Likely diastolic dysfunction due to hypertension and type II diabetes. - Diuretic management, to be guided by nephrology data power consultant - Other cardiac medications as per the cardiology service # Type II diabetes mellitus - 4 times a day capillary blood glucose - Glucose control goals: Random less than 180, fasting less than 140, none less than 70 - Insulin as needed, divided 50-50 long-acting and nutritional/correctional Stable and/or resolving problems: # Hypertension - Continue current medications - amlodipine, atenolol # Diabetic neuropathy - Continue duloxetine VTE Prophylaxis: Sub-Q Heparin (Unfractionated) Resuscitation Status: CPR: Attempt Resuscitation Time spent 35 minutes spent with eval and Ty Sinclair DO Apr 25, 2016 06:58
[2016-04-25] MEDS: Insulin LISPRO 300 Unit/3 mL Inj SUBQ SCH ×4 (07:54→22:18)
[2016-04-25] MEDS: Vitamin B Complex/Vit C Tablet PO SCH (07:55)
[2016-04-25] MEDS ORDERED: Furosemide 10 mg/mL 10 mL Inj IVPUSH STA (08:45)
[2016-04-25 10:46] LABS: BASOPHILS % (AUTO) 0.5 % (0-3); EOSINOPHILS % (AUTO) 2.1 % (0-5); MONOCYTES % (AUTO) 7.2 % (4-12); Mean Corpuscular Hemoglobin 28.9 pg (27.0-35.0); Mean Corpuscular Volume 89.4 fL (81-100); NEUTROPHILS % (AUTO) 75.6 % (40-74); Platelet Count 234 bil/L (150-400)
--- NOTE | 2016-04-25 12:20 | PCM.PNMED ---
Subjective Date of Service Apr 25, 2016 Subjective Patient was seen today and thoroughly reviewed her case and have had a lengthy discussion with her. It appears she has an underlying issue with probable chronic kidney disease due to diabetic renal disease and also gout. She underwent a cardiac cath and post cath has developed contrast-induced nephropathy/acute tubular necrosis. She states that she has a history of hyperuricemia which is manifested itself with guarding arthritis and uric acid stones which have both disease in the same patient. Since starting allopurinol her symptoms arthritis and renal lithiasis have improved considerably. Otherwise she denies any recent hematuria, proteinuria, coronary tract infections, frequent use nonsteroidal anti-inflammatories. Slowly she complains of some weakness and some mild shortness of breath. Her blood pressure is good and her intake and output for the last 24 hours for 1280 in and 1650 out with 600 urine output today. Her sodium is 138, potassium 5.3, chloride of 100 CO2 24 BUN and creatinine were 68 and 4.2 respectively. Exam Vital Signs Vital Sign - Last Date Time Temp Pulse Resp B/P Pulse Ox O2 Delivery O2 Flow Rate FiO2 04/25/16 09:08 85 04/25/16 07:47 Supplement Oxygen 04/25/16 07:47 37.4 20 129/75 93 3.00 Intake and Output 04/24/16 04/24/16 04/25/16 Cumulative From/Thru 15:00 23:00 07:00 04/22/16 08:23 - 04/25/16 06:13 Intake Total 840 ml 400 ml 3655 ml Output Total 1100 ml 600 ml 3100 ml Balance -260 ml -200 ml 555 ml Intake Oral 840 ml 400 ml 3280 ml IV Total 375 ml Output Urine Total 1100 ml 600 ml 3100 ml # Voids 2 6 # Bowel Movements 1 1 Exam HEENT examination is remarkable for pale sclera. Neck is supple without adenopathy or thyromegaly. She does have some mild to moderate venous distention at 90. She also has evidence of a Keratosis nigra cans. Examination shows shows an increased AP diameter large body habitus. She does have bibasilar rales approximately [address] Heart sounds were present and distant based on her body habitus. Abdomen is soft and nonrigid. There is some tympany to percussion but no significant fluid was noted. There was no hepatosplenomegaly. Extremity shows some mild generalized pitting edema up to her knees bilaterally. There is no evidence of any rashes. Lab and Diagnostics Result Diagram: 04/25/1621304/25/16213 X-Rays, CTs and MRIs PROCEDURE: X-RAY CHEST, TWO VIEWS ([id number]) IMPRESSION: Interstitial pulmonary edema is occurring. Dictated by: Romulo Marc M.D. on 04/24/2016 at 10:01 . Additional Diagnostics INTERVENTIONAL CARDIAC CATHETERIZATION PATIENT: CRISTHIAN ARREDONDO : 1945 ANGIOGRAPHIC FINDINGS: 1. Left main: No significant disease. 2. LAD is a moderate caliber transapical vessel. It has stents in its mid to proximal portion. These stents are patent. In the mid to distal part there is an eccentric 40% lesion. The first major diagonal has a tight 90% lesion in its ostium. This seems to have progressed. 3. Circumflex is nondominant. The first obtuse marginal branch, which is about a 2 mm vessel, has a long tubular stenosis of 90+%. Previously placed stents in the circumflex are patent as well. 4. Right coronary artery is dominant. It has mild diffuse disease of 20%-30%. PDA has 20%-30% lesion. No critical stenosis is noted. 5. Left heart catheterization revealed an LVEDP of 13. There was no gradient upon pullback. Contractility is preserved. Ejection fraction is estimated to be around 65%. INTERVENTIONAL DETAILS: We then took a Voda guide and placed a Runthrough wire in the diagonal branch and a BMW in the LAD. Balloon inflations with a 2.0 balloon was done in the LAD and then kissing balloon inflations were done. There was a lot of elastic recoil, and not unexpectedly there was also probable dissection in the ostium of the diagonal. This was tackled with prolonged balloon inflations with a 2.25 balloon. Following that, simultaneous kissing balloon inflations were done in the diagonal and the LAD. There was about a 30%-40% residual in the ostium of the LAD; however, I did not want to put a stent in the diagonal and hence accepted this result. We then proceeded ahead with an intervention on the obtuse marginal branch. OM was treated with balloon angioplasty with a 1.5 balloon. I deliberately chose not to stent this small caliber vessel as it would have required a long area of stenting that would have extended all the way up to the ostium of this vessel. Final angiographic results in this vessel were also acceptable. In summary, successful two-vessel balloon angioplasty. Yo Carter MD 04/22/16 1112 . Assessment & Plan Impression #1 acute kidney injury/acute tubular necrosis secondary to contrast- induced nephropathy #2 diabetic nephropathy #3 metabolic syndrome #4 hypertension with hypertensive heart disease and hypertensive nephrosclerosis # 5 obstructive sleep apnea #6 hyperuricemia with uric acid stones and podagra. Recommendations #1 discuss the case with from cardiology and if this point I would like to rule out try to increase her IV loop diuretics. VTE Prophylaxis: Sub-Q Heparin (Unfractionated) Resuscitation Status: CPR: Attempt Resuscitation Trevor Velásquez DO Apr 25, 2016 12:20
--- NOTE | 2016-04-25 13:46 | DRSVH ---
PROCEDURE: X-RAY CHEST ONE VIEW, PORTABLE ([id number]) INDICATIONS: shortness of breath TECHNIQUE: One view of the chest was acquired. COMPARISON: [facility], CR, XR CHEST 2VW, 04/24/2016, 9:34. FINDINGS: Surgical changes and devices: monitor tech device noted over the left chest.. Lungs and pleura: No pleural effusions or pneumothorax. Edema has diminished. Mediastinum: Mediastinal contours appear normal. Heart size is normal. Bones and chest wall: No suspicious bony lesions. Overlying soft tissues appear unremarkable. IMPRESSION: Resolving edema. Dictated by: Steven Hayden RRA Interpreted: Christel Gonsalves MD on 04/25/2016 at 13:42 Transcribed by: CARTER on 04/25/2016 at 13:42 Approved by: Christel Gonsalves MD, PhD on 04/25/2016 at 17:02
[2016-04-25] MEDS: Furosemide 10 mg/mL 10 mL Inj IVPUSH SCH (16:43)
--- NOTE | 2016-04-25 20:16 | PROG NOTE ---
[address] [address] PROGRESS NOTE PATIENT: CRISTHIAN ARREDONDO : 1945 MR#: [id number] ADMIT: 04/22/2016 JOB ID: [id number] DATE: This patient is complaining of mild shortness of breath. She states she is not yet back to her baseline. She has history of diabetes and coronary artery disease. She underwent coronary angiography where 220 cc of contrast was used. She developed renal failure with creatinine going up to 4.23. Nephrology service is helping us manage this patient. OBJECTIVE: Pulse 76, blood pressure 106/65. Obese. Chest: Bilateral crackles. Heart sounds S1, S2, regular. No murmurs, no gallops. Groin site looks good. GYRO MECHANIC alert and oriented. LABORATORY DATA: Creatinine as mentioned is 4.23. White count is 13,000. Hemoglobin has come down from 12 on admission to 10.4. ASSESSMENT AND PLAN: 1. Coronary artery disease. Stable. 2. Contrast-induced nephropathy. Nephrology service is appreciated. He given a dose of Lasix in the morning with good diuresis. Continue to monitor at this point and repeat BMP in the morning. I would also get stool guaiacs to make sure she is not having any GI bleeding.
[2016-04-25] MEDS: DULoxetine 30 mg DR Capsule PO SCH (21:13)
[2016-04-25] MEDS: Insulin GLARgine 100 Unit/mL Syringe SUBQ SCH (22:19)
[2016-04-26] VITALS (8 sets, daily range): BP systolic 108–129; BP diastolic 47–75; PULSE 64–78; RESP 12–20; O2SAT 88–96
[2016-04-26] MEDS: Sodium Chloride LOK Flush 10 mL Syringe IVFLUSH SCH ×3 (00:25→17:56)
--- NOTE | 2016-04-26 04:43 | NUR ---
Sats Requested home CPAP for use at night. Did well with this for a few hours, then sats were 86-88%. RT notified and added 02 to keep sats in mid-90's. Has been up independently in room without problems. Voided 2400 cc clear urine. No more stools tonight.
[2016-04-26 05:05] LABS: Phosphorus 6.3 mg/dL (2.5-4.9)
[2016-04-26] MEDS: Insulin LISPRO 300 Unit/3 mL Inj SUBQ SCH ×6 (08:00→19:55)
[2016-04-26] MEDS: Furosemide 10 mg/mL 10 mL Inj IVPUSH SCH ×3 (08:30→19:47)
[2016-04-26] MEDS: Vitamin B Complex/Vit C Tablet PO SCH (08:42)
--- NOTE | 2016-04-26 09:06 | PCM.PNMED ---
Subjective Date of Service Apr 26, 2016 Subjective She is doing well. She is less short of breath but still coughs with a deep breath. No chest pain. No orthopnea. She has mild pedal edema which is better than her usual chronic edema. No nausea or diarrhea or abdominal pain. No chest pressure. A gross urine output with the Lasix. Exam Vital Signs Vital Sign - Last Date Time Temp Pulse Resp B/P Pulse Ox O2 Delivery O2 Flow Rate FiO2 04/26/16 08:28 37.1 68 18 125/47 96 Room Air 04/25/16 16:34 4.00 Intake and Output 04/25/16 04/25/16 04/26/16 Cumulative From/Thru 15:00 23:00 07:00 04/22/16 08:23 - 04/26/16 04:59 Intake Total 440 ml 120 ml 4215 ml Output Total 2150 ml 2400 ml 7650 ml Balance -1710 ml -2280 ml -3435 ml Intake Oral 440 ml 120 ml 3840 ml IV Total 375 ml Output Urine Total 2150 ml 2400 ml 7650 ml # Voids 6 # Bowel Movements 5 0 6 Exam Alert oriented 3, no distress. Fluent speech Anicteric sclera Neck is supple. Lungs are clear with bibasilar rales. Heart is regular without murmur gallop or rub Extremities without 1-2+ edema. Skin free of rash or lesions. IVs and Medications Medications Reviewed: Medications were reviewed in detail Lab and Diagnostics Result Diagram: 04/25/16 0214 04/26/16 0252 X-Rays, CTs and MRIs PROCEDURE: X-RAY CHEST, TWO VIEWS ([id number]) IMPRESSION: Interstitial pulmonary edema is occurring. Dictated by: Romulo Marc M.D. on 04/24/2016 at 10:01 . Additional Diagnostics INTERVENTIONAL CARDIAC CATHETERIZATION PATIENT: CRISTHIAN ARREDONDO : 1945 ANGIOGRAPHIC FINDINGS: 1. Left main: No significant disease. 2. LAD is a moderate caliber transapical vessel. It has stents in its mid to proximal portion. These stents are patent. In the mid to distal part there is an eccentric 40% lesion. The first major diagonal has a tight 90% lesion in its ostium. This seems to have progressed. 3. Circumflex is nondominant. The first obtuse marginal branch, which is about a 2 mm vessel, has a long tubular stenosis of 90+%. Previously placed stents in the circumflex are patent as well. 4. Right coronary artery is dominant. It has mild diffuse disease of 20%-30%. PDA has 20%-30% lesion. No critical stenosis is noted. 5. Left heart catheterization revealed an LVEDP of 13. There was no gradient upon pullback. Contractility is preserved. Ejection fraction is estimated to be around 65%. INTERVENTIONAL DETAILS: We then took a Voda guide and placed a Runthrough wire in the diagonal branch and a BMW in the LAD. Balloon inflations with a 2.0 balloon was done in the LAD and then kissing balloon inflations were done. There was a lot of elastic recoil, and not unexpectedly there was also probable dissection in the ostium of the diagonal. This was tackled with prolonged balloon inflations with a 2.25 balloon. Following that, simultaneous kissing balloon inflations were done in the diagonal and the LAD. There was about a 30%-40% residual in the ostium of the LAD; however, I did not want to put a stent in the diagonal and hence accepted this result. We then proceeded ahead with an intervention on the obtuse marginal branch. OM was treated with balloon angioplasty with a 1.5 balloon. I deliberately chose not to stent this small caliber vessel as it would have required a long area of stenting that would have extended all the way up to the ostium of this vessel. Final angiographic results in this vessel were also acceptable. In summary, successful two-vessel balloon angioplasty. Yo Carter MD 04/22/16 1112 . Assessment & Plan 70-year-old woman with diabetes, hypertension, morbid obesity and CAD presents with post PCI acute kidney injury (text from Dr. Rosen's previous note) 1. Acute kidney injury, present on admission. This is stable to improved with better urine output. Probable contrast-induced nephropathy. - Renal ultrasound is normal. - Nephrology consult, appreciate recs - added diuresis to facilitate UOP -He continues to be mildly fluid overloaded but is diuresing. We will continue Lasix 80 IV twice a day. - Allopurinol renal dose adjustment 2. Coronary artery disease, POA. Status post PCI with two-vessel balloon intervention. - Continue dual antiplatelet therapy - Monitor symptoms, she appears to be clinically quiescent. - Cardiology following 3. Acute diastolic congestive heart failure. -We will continue her Lasix 80 mg IV every 12 hours. She is feeling somewhat better today. 4. Type II diabetes mellitus, POA. Recently well controlled. -Continue her current Lantus level and will adjust and add a nutritional lispro dose 5. Hypertension, POA. Controlled. - Continue current medications - amlodipine, atenolol 6. Diabetic neuropathy, POA. - Continue duloxetine VTE Prophylaxis: Sub-Q Heparin (Unfractionated) Resuscitation Status: CPR: Attempt Resuscitation Pain Evaluation: Adequate Pain Control VTE Prophylaxis: Sub-Q Heparin (Unfractionated) Resuscitation Status: CPR: Attempt Resuscitation Time spent 30 minutes Tez Parra MD Apr 26, 2016 09:05
--- NOTE | 2016-04-26 10:13 | PCM.PNCARD ---
Subjective Date of service Apr 26, 2016 Chief Complaint CAD History of Present Illness Mrs. Callahan 70-year-old woman with known history of coronary artery disease and insulin-dependent diabetes. She had recently been seen in the office by Dr. Carter where he noted an increase in her anginal symptoms. He elected to bring her to the labeling strategist on 04/22/2016 at which point he performed PCI / balloon angioplasty to her LAD, 1st diagonal and first OM. His dictation from the procedure mentions probable dissection in the ostium of the diagonal which was tacked with prolonged balloon inflations. No stenting was performed. Patient reports she is feeling better today than yesterday with less dyspnea and cough. She continues to feel the urge to cough with deep breaths. Her appetite is slightly decreased. He has not had any chest pain. She admits to mild occasional palpitation not associated with dizziness or syncope. He claims her appetite is down and she experiences mild bloating and she is eating. She claims she had diarrhea most of yesterday with associated abdominal cramps. That is improved today. She is urinating much more freely and frequently and responding well to IV Lasix. She claims her headache although not resolved is much improved and she feels she has less facial swelling. She still has some postnasal drip. She has not had fever or chills. Subjective: Systems otherwise negative other than above. Exam Vital Signs Vital Sign - Last Date Time Temp Pulse Resp B/P Pulse Ox O2 Delivery O2 Flow Rate FiO2 04/26/16 08:28 37.1 68 18 125/47 96 Room Air 04/25/16 16:34 4.00 Intake and Output 04/25/16 04/25/16 04/26/16 Cumulative From/Thru 15:00 23:00 07:00 04/22/16 08:23 - 04/26/16 04:59 Intake Total 440 ml 120 ml 4215 ml Output Total 2150 ml 2400 ml 7650 ml Balance -1710 ml -2280 ml -3435 ml Intake Oral 440 ml 120 ml 3840 ml IV Total 375 ml Output Urine Total 2150 ml 2400 ml 7650 ml # Voids 6 # Bowel Movements 5 0 6 Additional Information: # General- the patient lying back in bed mostly reclined in no apparent distress #HEENT- eyes clear PERRLA pharynx unremarkable without significant postnasal drip on clinical mucosa is moist. #Neck- supple, benign #Chest- symmetrical, good air movement, mild bibasilar crackles that do not clear with cough. #Cardiovascular- regular rate and rhythm without murmur click or rub, no gallop. No carotid bruits. Trace pedal edema. 2+ dorsalis pedis right leg. Normal temperature right lower extremity. #Abdomen- soft nontender #Integument- no focal rash, redness, unusual bruising. #Neurologic- alert and oriented 4, motor is nonfocal, cranial nerves II through XII grossly intact. #Psychiatric- no mood appropriate for situation. Lab and Diagnostics Result Diagram: 04/25/16 0214 04/26/16 0252 X-Rays, CTs and MRIs Chest x-ray from April 25 shows resolving edema per radiology Telemetry- patient had short run of SVT for a few seconds yesterday afternoon rate approximately 150 bpm. Assessment & Plan Assessment This patient is a 70-year-old woman with history of CAD recent PCI /balloon angioplasty to her LAD, first diagonal and first OM. It was probable dissection in the ostium of the diagonal branch. She also has insulin- dependent diabetes. She claims she is feeling better overall and her labs reflect stabilization of her renal failure secondary to diabetes and IV contrast. She is responding well to diuresis and output negative balance of 2280. We appreciate nephrology's assistance with this challenging patient. Problems: Plan #CAD -continue with clopidogrel 75 mg daily, aspirin 81 mg daily. Continue with her pravastatin 80 mg daily while in the hospital. I will be changing this to atorvastatin 40 mg one half to one pill daily as tolerated upon discharge. #Hypertension- continue amlodipine 5 mg twice a day, we will stop atenolol and start metoprolol tartrate 75 mg twice a day in an effort to decrease short bursts of SVT noted on telemetry. #Short burst of SVT noted on telemetry. We will stop atenolol and start metoprolol tartrate 75 mg twice a day. #Acute on chronic renal insufficiency secondary to contrast media and diabetes. She is responding vigorously to IV furosemide. We appreciate nephrology's input and will defer to their management at this time. #Headache/sinus pain -patient reports symptoms are improving. #Insulin-dependent diabetes mellitus- management and control per hospitalist. #Hyperkalemia- in the setting of kavitha. Potassium is back in the normal range as she diuresis. Pain Evaluation: Adequate Pain Control VTE Prophylaxis: Sub-Q Heparin (Unfractionated) Resuscitation Status: CPR: Attempt Resuscitation Attending Statement Subjectively feels better, Cre 4.15. Hopefully we will see a downward trend. Dano Palencia PA-C Apr 26, 2016 10:13 Yo Carter MD Apr 26, 2016 14:44
[2016-04-26 10:14] LABS: APPEARANCE,URINE HAZY (CLEAR,HAZY); COLOR,URINE STRAW (YELLOW); OCCULT BLOOD,URINE TRACE (NEGATIVE); PH,URINE 6.5 (5.0-8.0); UROBILINOGEN,URINE NORMAL (NORMAL)
--- NOTE | 2016-04-26 10:47 | NUR ---
NUTRITION ASSESSMENT ASSESS: Pt is a 70 yo female admitted w/ CAD. Pt underwent heart catheter procedure, which resulted in contrast-induced nephropathy. Nephrology consulted for GILES, and stated evidence of fluid overload and probable CKD d/t diabetic renal disease. Recommended diuresis. Pt has adequate PO intake w/ average 80% intake at all meals. Pt on supplemental oxygen. PMHX: CAD, Type II DM, HTN, DJD, Obesity class III, Hx of nephrolithiasis, hyperuricemia LABS: Reviewed. BUN 73, Global Sourcing Manager 4.15, Gluc 173, A1C 7.4, Phos 6.3 MEDS: Reviewed. Lasix, Insulin, Plavix, Vitamin B Complex/Vitamin C GI: BM x 6 (04/25) - diarrhea noted. SKIN: Shamir 20 - no other skin issues noted. CURRENT WT: 123.4 kg BMI: 48.2 kg/m2 Admit Wt: 122.1 kg IBW: 52.3 kg ABW: 70.1 kg DIET: Diabetic Consistent Carb. PO Refused-100%, Ave 80% EST. NEEDS: BMI, GILES Kcals: 7474-0390 kcal/day (30-35 kcal/kg ABW) Pro: 55-70 g/day (0.8-1.0 g/kg ABW) NUTRITION DIAGNOSIS: 1.) Altered nutrition-related lab values related to GILES and Type II DM as evidenced by elevated BUN, Global Sourcing Manager, Phos, and A1C values. NUTRITION INTERVENTION: 1.) Continue w/ diet as ordered d/t adequate PO intake. 2.) Continue on diabetic diet. No inpatient diabetic education provided d/t A1C not meeting IPDE criteria at this time. MONITOR / EVAL: PO intake, labs, GI, medications, nutrition status, POC. Will continue to monitor per moderate nutrition risk guidelines. Addendum: 04/26/16 at [address] I have read and agree with above student documentation. Sherrie Carvajal RD, CD
--- NOTE | 2016-04-26 11:42 | PCM.PNMED ---
Subjective Date of Service Apr 26, 2016 Subjective Patient is continuing to improve. She has had 5 L the last 36 hours and her creatinine has improved somewhat. Her breathing is considerably easier and she denies any chest pain, nausea, vomiting, worsening orthopnea. Supporting her sodium is 139, potassium 4.6, chloride 97, bicarbonate 27, BUN and creatinine were 73 and 4.15. Exam Vital Signs Vital Sign - Last Date Time Temp Pulse Resp B/P Pulse Ox O2 Delivery O2 Flow Rate FiO2 04/26/16 10:55 70 04/26/16 08:28 37.1 18 125/47 96 Nasal Cannula 4.00 Intake and Output 04/25/16 04/25/16 04/26/16 Cumulative From/Thru 15:00 23:00 07:00 04/22/16 08:23 - 04/26/16 04:59 Intake Total 440 ml 120 ml 4215 ml Output Total 2150 ml 2400 ml 7650 ml Balance -1710 ml -2280 ml -3435 ml Intake Oral 440 ml 120 ml 3840 ml IV Total 375 ml Output Urine Total 2150 ml 2400 ml 7650 ml # Voids 6 # Bowel Movements 5 0 6 Exam Patient appears considerably more comfortable today compared to yesterday. Lungs are once again demonstrate bibasilar rales but these appear to be improved. Her sugar was a soft systolic murmur. Abdomen is soft without any tenderness rebound guarding masses or hepatosplenomegaly. Extremities did not show any evidence of any clubbing cyanosis or edema. Lab and Diagnostics Result Diagram: 04/25/16 0214 04/26/16 0252 X-Rays, CTs and MRIs PROCEDURE: X-RAY CHEST, TWO VIEWS ([id number]) IMPRESSION: Interstitial pulmonary edema is occurring. Dictated by: Romulo Marc M.D. on 04/24/2016 at 10:01 . Additional Diagnostics INTERVENTIONAL CARDIAC CATHETERIZATION PATIENT: CRISTHIAN ARREDONDO : 1945 ANGIOGRAPHIC FINDINGS: 1. Left main: No significant disease. 2. LAD is a moderate caliber transapical vessel. It has stents in its mid to proximal portion. These stents are patent. In the mid to distal part there is an eccentric 40% lesion. The first major diagonal has a tight 90% lesion in its ostium. This seems to have progressed. 3. Circumflex is nondominant. The first obtuse marginal branch, which is about a 2 mm vessel, has a long tubular stenosis of 90+%. Previously placed stents in the circumflex are patent as well. 4. Right coronary artery is dominant. It has mild diffuse disease of 20%-30%. PDA has 20%-30% lesion. No critical stenosis is noted. 5. Left heart catheterization revealed an LVEDP of 13. There was no gradient upon pullback. Contractility is preserved. Ejection fraction is estimated to be around 65%. INTERVENTIONAL DETAILS: We then took a Voda guide and placed a Runthrough wire in the diagonal branch and a BMW in the LAD. Balloon inflations with a 2.0 balloon was done in the LAD and then kissing balloon inflations were done. There was a lot of elastic recoil, and not unexpectedly there was also probable dissection in the ostium of the diagonal. This was tackled with prolonged balloon inflations with a 2.25 balloon. Following that, simultaneous kissing balloon inflations were done in the diagonal and the LAD. There was about a 30%-40% residual in the ostium of the LAD; however, I did not want to put a stent in the diagonal and hence accepted this result. We then proceeded ahead with an intervention on the obtuse marginal branch. OM was treated with balloon angioplasty with a 1.5 balloon. I deliberately chose not to stent this small caliber vessel as it would have required a long area of stenting that would have extended all the way up to the ostium of this vessel. Final angiographic results in this vessel were also acceptable. In summary, successful two-vessel balloon angioplasty. Yo Carter MD 04/22/16 1112 . Assessment & Plan Impression #1 acute kidney injury which appears to be resolving #2 hypertension with hypertensive heart disease and hypertensive nephrosclerosis Recommendations #1 I would like to continue her current medical therapy and back down on her diuretics a bit. VTE Prophylaxis: Sub-Q Heparin (Unfractionated) Resuscitation Status: CPR: Attempt Resuscitation Trevor Velásquez DO Apr 26, 2016 11:42
--- NOTE | 2016-04-26 15:12 | NUR ---
Urinary/activity pt continues with large amounts of urine in response to Lasix. Pt independent up to brp, using measuring hat. Pt ambulated in halls with steady gait, tolerated well. will continue to monitor.
[2016-04-26] MEDS: DULoxetine 30 mg DR Capsule PO SCH (19:49)
[2016-04-26] MEDS: Insulin GLARgine 100 Unit/mL Syringe SUBQ SCH (19:51)
[2016-04-27] MEDS: Sodium Chloride LOK Flush 10 mL Syringe IVFLUSH SCH ×3 (00:36→18:26)
[2016-04-27 03:06] VITALS: BP 105/53; PULSE 63; RESP 12; O2SAT 96
[2016-04-27 04:19] LABS: Phosphorus 6.6 mg/dL (2.5-4.9)
--- NOTE | 2016-04-27 05:56 | NUR ---
Restful night. Patient rested comfortably throughout the evening and was free of complaints. Patient requested to sleep as much as possible this evening. Room darkened and nursing cares clustered.
[2016-04-27] MEDS: Insulin LISPRO 300 Unit/3 mL Inj SUBQ SCH ×4 (08:00→22:27)
[2016-04-27] MEDS: Furosemide 10 mg/mL 10 mL Inj IVPUSH SCH (08:20)
[2016-04-27] MEDS: Vitamin B Complex/Vit C Tablet PO SCH (08:20)
--- NOTE | 2016-04-27 08:51 | PCM.PNMED ---
Subjective Date of Service Apr 27, 2016 Subjective No problems overnight. No chest pain, or dyspnea. No abdominal pain. She has had a good diuresis. No orthopnea or pedal edema. She took metoprolol without any adverse effects which she has had in the past with that medication. Exam Vital Signs Vital Sign - Last Date Time Temp Pulse Resp B/P Pulse Ox O2 Delivery O2 Flow Rate FiO2 04/27/16 03:06 36.6 63 12 105/53 96 CPAP 4.00 Intake and Output 04/26/16 04/26/16 04/27/16 Cumulative From/Thru 15:00 23:00 07:00 04/22/16 08:23 - 04/27/16 04:51 Intake Total 1200 ml 800 ml 6215 ml Output Total 1600 ml 2400 ml 83097 ml Balance -400 ml -1600 ml -5435 ml Intake Oral 1200 ml 800 ml 5840 ml IV Total 375 ml Output Urine Total 1600 ml 2400 ml 24773 ml # Voids 6 # Bowel Movements 0 0 6 Exam Alert oriented 3, fluent speech. Anicteric sclera Conjugate. Gaze Neck supple. Lungs are clear with normal effort and rate Heart is regular without murmur gallop or rub. Abdomen is soft nontender. Extremities are free of edema. Skin is free of rash or lesions. IVs and Medications Medications Reviewed: Medications were reviewed in detail Lab and Diagnostics Result Diagram: 04/25/164 04/27/16 0246 Additional Diagnostics Assessment & Plan 70-year-old woman with diabetes, hypertension, morbid obesity and CAD presents with post PCI acute kidney injury (text from Dr. Rosen's previous note) 1. Acute kidney injury, present on admission. This is stable to improved with better urine output. Her creatinine is improved again today and is now less than 4. She had a net urine output of 1400 overnight. Probable contrast-induced nephropathy. - Renal ultrasound is normal. - Nephrology consult, appreciate recs - added diuresis to facilitate UOP -He continues to be mildly fluid overloaded but is diuresing. We will continue Lasix 80 IV twice a day. - Allopurinol renal dose adjustment 2. Coronary artery disease, POA. Status post PCI with two-vessel balloon intervention. - Continue dual antiplatelet therapy - Monitor symptoms, she appears to be clinically quiescent. - Cardiology following, she also does have a heart rate monitor on her left chest. This will be on for about 2 weeks. 3. Acute diastolic congestive heart failure. -We will continue her Lasix 80 mg IV every 12 hours. She is feeling somewhat better today. She appears close to euvolemic on exam. Well continue Lasix for another 24 hours. 4. Type II diabetes mellitus, POA. Recently well controlled. -Continue her current Lantus level and will adjust and add a nutritional lispro dose 5. Hypertension, POA. Controlled. - Continue current medications - amlodipine, atenolol 6. Diabetic neuropathy, POA. - Continue duloxetine Pain Evaluation: Adequate Pain Control VTE Prophylaxis: Sub-Q Heparin (Unfractionated) VTE Mechanical Devices: Intermittant Pneumatic CD Resuscitation Status: CPR: Attempt Resuscitation Time spent 30 minutes Tez Parra MD Apr 27, 2016 08:51
[2016-04-27 09:38] VITALS: BP 116/72; PULSE 67; RESP 16; O2SAT 95
--- NOTE | 2016-04-27 10:13 | NUR ---
Social Work Note - Readiness for Discharge: D/A: The Pt was admitted on 04/22/16 for coronary artery disease, as per EMR. SW followed-up with Pt at bedside to discuss D/C and any anticipated needs. The Pt will likely D/C tomorrow, no needs identified. SW to follow if needs arise. P: Pt likely to D/C home tomorrow, no needs identified. SW to follow if needs arise. Eugenie Morel MSW Parts Sales Associate IVAN Evans
[2016-04-27 10:57] VITALS: PULSE 70
--- NOTE | 2016-04-27 11:01 | NUR ---
Nutrition Patient stated she did not feel like eating, stated she has no appetite. Pt education on nutrition, encouraged other food items on menu. Pt ate breakfast. Care continues.
--- NOTE | 2016-04-27 14:02 | PCM.PNMED ---
Subjective Date of Service Apr 27, 2016 Subjective Patient's urine output has markedly picked up and her creatinine has improved. She denies any chest pain, shortness of breath, cough or wheezing. Her blood pressures have been good. Intake and output for last 24 hours shows 1320 in and 4000. The last 8 hours she has had 2460 out. Spelled her sodium is 140, potassium 3.7, chloride 96, bicarbonate 29, BUN and creatinine were 77 and 3.99 respectively. Her phosphorus morning is 2.6. Exam Vital Signs Vital Sign - Last Date Time Temp Pulse Resp B/P Pulse Ox O2 Delivery O2 Flow Rate FiO2 04/27/16 10:57 70 04/27/16 09:38 36.5 16 116/72 95 Room Air 04/27/16 03:06 4.00 Intake and Output 04/26/16 04/26/16 04/27/16 Cumulative From/Thru 15:00 23:00 07:00 04/22/16 08:23 - 04/27/16 04:51 Intake Total 1200 ml 800 ml 6215 ml Output Total 1600 ml 2400 ml 01352 ml Balance -400 ml -1600 ml -5435 ml Intake Oral 1200 ml 800 ml 5840 ml IV Total 375 ml Output Urine Total 1600 ml 2400 ml 19167 ml # Voids 6 # Bowel Movements 0 0 6 Exam Neck is supple without adenopathy thyromegaly or jugular venous distention. Lungs were clear to auscultation. Heart is regular rhythm with a soft systolic murmur. Soft without any tenderness rebound guarding masses or hepatosplenomegaly. Skin turgor slightly diminished. Lab and Diagnostics Result Diagram: 04/25/16 0214 04/27/16 0246 Additional Diagnostics Assessment & Plan Impression #1 acute kidney injury which is slowly resolving #2 hypertension with hypertensive heart disease hypertensive nephrosclerosis Recommendations #1 I would like to stop the Lasix and give her a chance to review appropriate for the next several days. VTE Prophylaxis: Sub-Q Heparin (Unfractionated) VTE Mechanical Devices: Intermittant Pneumatic CD Resuscitation Status: CPR: Attempt Resuscitation Trevor Velásquez DO Apr 27, 2016 14:02
--- NOTE | 2016-04-27 14:26 | NUR ---
Social Work Note: Readiness for Discharge Data& Assessment: SW met with pt and pt to confirm discharge plan and assess for any unmet needs per their request. Pt had been thinking about her primary care provider and was interested in finding a new physician here in [place]. SW obtained internal medicine primary care providers that are preferred by pt's insurance and provided the list to pt to review. Pt declined any appointment scheduling at this time as she would like to do research and find a provider that would be a "good fit" for her and her needs. Pt and pt deny any other needs. Pt providing transportation home at time of discharge. Pt is independent in her room and at baseline. No other discharge needs identified. All updated and agreeable to plan. Plan: Per MD pt is getting closer to being medically ready for discharge. SW provided PCP options for establishing care with a new provider per her request. o other discharge needs identified. All updated and agreeable to plan. IVAN Taylor
--- NOTE | 2016-04-27 18:01 | NUR ---
Cramping Pt states she is having bad cramps in hands, on back over right kidney and legs. Pt states they are intolerable. Encouraged ambulation and stretching. Notified MD. Care continues.
[2016-04-27 18:21] VITALS: BP 120/63; PULSE 74; RESP 16; O2SAT 95
[2016-04-27 22:11] VITALS: BP 117/67; PULSE 77; RESP 20; O2SAT 96
[2016-04-27] MEDS: DULoxetine 30 mg DR Capsule PO SCH (22:21)
[2016-04-27] MEDS: Insulin GLARgine 100 Unit/mL Syringe SUBQ SCH (22:25)
[2016-04-28] VITALS (9 sets, daily range): BP systolic 102–146; BP diastolic 50–81; PULSE 71–85; RESP 16–20; O2SAT 96–98
[2016-04-28] MEDS: Sodium Chloride LOK Flush 10 mL Syringe IVFLUSH SCH ×3 (00:44→16:30)
[2016-04-28 03:50] LABS: Phosphorus 6.1 mg/dL (2.5-4.9)
--- NOTE | 2016-04-28 07:41 | NUR ---
Activity Pt independent in room and with care. No c/o of CP, SOB or pain. VSS and Tele SR 70's
[2016-04-28] MEDS: Insulin LISPRO 300 Unit/3 mL Inj SUBQ SCH ×4 (08:00→21:48)
[2016-04-28] MEDS: Vitamin B Complex/Vit C Tablet PO SCH (08:21)
--- NOTE | 2016-04-28 08:23 | NUR ---
Home Pt states she is anxious to get home, but understands the reasoning why she is still here. Encouraged pt. Care continues.
[2016-04-28] MEDS ORDERED: Magnesium Hydroxide 10 mL Oral Concentration PO ONE (10:45)
[2016-04-28] MEDS: 0.9% Sodium Chloride 1,000 ML IV SCH (11:24)
--- NOTE | 2016-04-28 14:29 | PROG NOTE ---
[address] [address] PROGRESS NOTE PATIENT: CRISTHIAN ARREDONDO : 1945 MR#: [id number] ADMIT: 04/22/2016 JOB ID: [id number] DATE: 04/28/2016 SUBJECTIVE: Feels much better. No chest discomfort. No shortness of breath. She states that a few days ago she had a fluttery sensation in her chest. This correlated with a short episode of nonsustained SVT on a telemonitoring. She also has a Zio patch placed on her and she still has a week or so to go through it and she will be mailing that. OBJECTIVE: Comfortable. Pulse 76, blood pressure 110/72. Neck supple. No JVD. No bruits. Chest: Clear. Heart sounds S1, S2 regular. LABORATORY DATA: Creatinine is down to 2.9, hemoglobin is 10.4. ASSESSMENT AND PLAN: Coronary artery disease status post percutaneous intervention complicated by contrast-induced nephropathy. Her kidney function is improving. She has tried statins in the past with cramping in her legs. She is willing to retry Crestor or Lipitor. If she develops cramping with these agents, then I will be requesting approval for for her.
--- NOTE | 2016-04-28 16:07 | PCM.PNMED ---
Subjective Date of Service Apr 28, 2016 Subjective Patient's renal function continues to improve today. She states that she is feeling much better and is experiencing improving breathing and increased exercise tolerance. He denies any chest pain, worsening orthopnea, or lower extremity edema. Her intake and output from yesterday was 1640 900 out thousand the last 8 hours. This morning her sodium is 141 potassium 4.1 chloride 96 CO2 30 BUN and creatinine were 78 and 2.93 respectively this is down from [place] in the upper fours. Exam Vital Signs Vital Sign - Last Date Time Temp Pulse Resp B/P Pulse Ox O2 Delivery O2 Flow Rate FiO2 04/28/16 15:13 36.5 78 16 115/81 96 Room Air 04/27/16 03:06 4.00 Intake and Output 04/27/16 04/27/16 04/28/16 Cumulative From/Thru 15:00 23:00 07:00 04/22/16 08:23 - 04/28/16 04:57 Intake Total 800 ml 400 ml 7415 ml Output Total 2500 ml 1000 ml 80189 ml Balance -1700 ml -600 ml -7735 ml Intake Oral 800 ml 400 ml 7040 ml IV Total 375 ml Output Urine Total 2500 ml 1000 ml 80268 ml # Voids 6 # Bowel Movements 1 0 7 Exam HEENT examination is remarkable for pale sclera. Neck is supple without adenopathy thyromegaly or jugular venous distention. Lab and Diagnostics Result Diagram: 04/25/16 0214 04/28/16 0236 Additional Diagnostics Assessment & Plan Impression #1 acute kidney injury which is slowly resolving #2 hypertension with hypertensive heart disease hypertensive nephrosclerosis Recommendations #1 I would l like to continue to monitor her urine output and laboratory values all. She may require some supplemental fluids however this will be based on her daily needs. VTE Prophylaxis: Sub-Q Heparin (Unfractionated) VTE Mechanical Devices: Intermittant Pneumatic CD Resuscitation Status: CPR: Attempt Resuscitation Trevor Velásquez DO Apr 28, 2016 16:07
--- NOTE | 2016-04-28 16:10 | PCM.PNMED ---
Subjective Date of Service Apr 28, 2016 Subjective She is doing well. No confusion. She denies any headache. No chest pain, shortness of breath nausea vomiting abdominal pain. She has had multiple normal bowel movements. Good urine output, urine is clear. Exam Vital Signs Vital Sign - Last Date Time Temp Pulse Resp B/P Pulse Ox O2 Delivery O2 Flow Rate FiO2 04/28/16 15:13 36.5 78 16 115/81 96 Room Air 04/27/16 03:06 4.00 Intake and Output 04/27/16 04/27/16 04/28/16 Cumulative From/Thru 15:00 23:00 07:00 04/22/16 08:23 - 04/28/16 04:57 Intake Total 800 ml 400 ml 7415 ml Output Total 2500 ml 1000 ml 02630 ml Balance -1700 ml -600 ml -7735 ml Intake Oral 800 ml 400 ml 7040 ml IV Total 375 ml Output Urine Total 2500 ml 1000 ml 07965 ml # Voids 6 # Bowel Movements 1 0 7 Exam Alert oriented 3, no distress. Fluent speech Lungs are clear with normal effort and rate Heart is regular without murmur gallop or rub. Abdomen is nontender. Extremities are free of edema good pedal pulses. Skin is free of rash or lesions. IVs and Medications Medications Reviewed: Medications were reviewed in detail Lab and Diagnostics Result Diagram: 04/25/164 04/28/16 0236 Additional Diagnostics Assessment & Plan 70-year-old woman with diabetes, hypertension, morbid obesity and CAD presents with post PCI acute kidney injury (text from Dr. Rosen's previous note) 1. Acute kidney injury, present on admission. This continues to improve. Her creatinine is down to 2.99 today. Her urine output is also doing well. Probable contrast-induced nephropathy. We will place her on saline in the 100 mils an hour and continue to follow creatinine with anticipated discharge in 1- 2 days. 2. Coronary artery disease, POA. Status post PCI with two-vessel balloon intervention. - Continue dual antiplatelet therapy - Monitor symptoms, she appears to be clinically quiescent. - Cardiology following, she also does have a heart rate monitor on her left chest. This will be on for about 2 weeks. She continues to do well with no evidence of recurrent chest pain. 3. Acute diastolic congestive heart failure. We will stop active diuresis at this point she appears to be compensated. 4. Type II diabetes mellitus, POA. Recently well controlled. -Continue her current Lantus level and will adjust and add a nutritional lispro dose 5. Hypertension, POA. Controlled. - Continue current medications - amlodipine, atenolol 6. Diabetic neuropathy, POA. - Continue duloxetine Pain Evaluation: Adequate Pain Control VTE Prophylaxis: Sub-Q Heparin (Unfractionated) VTE Mechanical Devices: Intermittant Pneumatic CD Resuscitation Status: CPR: Attempt Resuscitation Time spent 30 minutes Tez Parra MD Apr 28, 2016 16:10
[2016-04-28] MEDS: DULoxetine 30 mg DR Capsule PO SCH (21:36)
[2016-04-28] MEDS: Insulin GLARgine 100 Unit/mL Syringe SUBQ SCH (21:47)
[2016-04-29] VITALS (8 sets, daily range): BP systolic 96–147; BP diastolic 61–78; PULSE 72–87; RESP 16–20; O2SAT 95–99
[2016-04-29] MEDS: Sodium Chloride LOK Flush 10 mL Syringe IVFLUSH SCH ×4 (00:30→21:43)
[2016-04-29 03:25] LABS: Magnesium 1.7 mg/dL (1.6-2.6); Phosphorus 4.6 mg/dL (2.5-4.9)
--- NOTE | 2016-04-29 06:42 | NUR ---
Discharge Pt informed me this AM that she will be unable to DC today if that is the plan. Pt will not have transportation home as her has a prior engagement today. Pt able to rest most of the shift. VSS and Tele SR 70's
[2016-04-29] MEDS ORDERED: Insulin GLARgine 100 Unit/mL Syringe SUBQ ONE (07:25)
[2016-04-29] MEDS: Insulin LISPRO 300 Unit/3 mL Inj SUBQ SCH ×4 (08:35→21:40)
[2016-04-29] MEDS: Vitamin B Complex/Vit C Tablet PO SCH (09:31)
--- NOTE | 2016-04-29 10:35 | PCM.PNCARD ---
Subjective Date of service Apr 29, 2016 Chief Complaint Chest pain History of Present Illness Mrs. Callahan is a pleasant 70-year-old woman with PMH of CAD and IDDM. During recent cardiology clinic visit she was found to have an increase in anginal symptoms. PCI on 04/22/16 balloon angioplasty to her LAD, 1st diagonal and first OM. Pt also had probable dissection in the ostium of the diagonal which was tacked with prolonged balloon inflations. No stenting was performed. Subjective: Patient status continues to improve daily. She reports no chest discomfort or shortness of breath, no visual disturbances, headache nausea, diaphoresis.. She states the fluttery sensation in her chest has resolved. Overnight telemetry showed patient remained in sinus rhythm with no SVT. Patient remains with serial patch in place. Trending continues to trend down last measurement 2.15. Hemoglobin and hematocrit remains low 10.4/32.2. Constitutional: Denies: Chills, Fever Cardiovascular: Denies: Chest Pain, Edema, Irregular Heart Rate, Palpitations, Rapid Heart Rate, SOB on Exertion, SOB while laying flat Respiratory: Denies: Cough Gastrointestinal: Denies: Abdominal Pain, Nausea, Vomiting Neurological: Denies: Change in LOC, Confusion, Difficulty Walking, Dizziness, Double Vision, Numbness Exam Vital Signs Vital Sign - Last Date Time Temp Pulse Resp B/P Pulse Ox O2 Delivery O2 Flow Rate FiO2 04/29/16 09:23 36.3 73 18 136/78 97 04/29/16 04:39 Room Air 04/27/16 03:06 4.00 Intake and Output 04/28/16 04/28/16 04/29/16 Cumulative From/Thru 15:00 23:00 07:00 04/22/16 08:23 - 04/29/16 06:29 Intake Total 1200 ml 400 ml 9015 ml Output Total 1200 ml 1100 ml 39623 ml Balance 0 ml -700 ml -8435 ml Intake Oral 1200 ml 400 ml 8640 ml IV Total 375 ml Output Urine Total 1200 ml 1100 ml 46829 ml # Voids 6 # Bowel Movements 7 Additional Information: General: Obese female sitting at bedside eating breakfast in no apparent distress, appropriately interactive HEENT: Normocephalic, atraumatic. External ears without defect. Pupils equal, round, and reactive to light and accommodation. Neck: Supple with full range of motion. No jugular venous distension. No bruits. Cardiovascular: Regular rate and rhythm with no murmurs, rubs, or gallops appreciated Pulmonary: Clear to auscultation bilaterally with no crackles, wheezes, or rhonchi. Normal respiratory effort with no use of accessory muscles. Extremities: No edema Neurological: Cranial nerves grossly intact. Psychiatric: Normal mood and affect. Alert and oriented to person, place, and time. Lab and Diagnostics Result Diagram: 04/25/16 0214 04/29/16 0230 X-Rays, CTs and MRIs X-RAY CHEST ONE VIEW, PORTABLE IMPRESSION: Resolving edema. Additional Diagnostics: US RETROPERITONEAL SONOGRAM IMPRESSION: No abnormality is seen in either kidney. No evidence for obstruction. Cause of acute renal failure is not appreciated. Assessment & Plan Assessment # CAD S/P PCI with two vessel balloon intervention which was complicated by contrast-induced nephropathy. Kidney function continues to improve, Cr 2.15 from a peak value of 4.15. Pt has reported adverse reaction to statin's. Crestor was started yesterday with no reported adverse events. Pt has been restarted on IV fluids at 40 ml/hr. Pt is stable from a cardiology standpoint and will be managed medically with continual follow up in cardiology clinic. - Continue with Plavix 75mg daily - Continue ASA 81 mg daily - Continue Rosuvastatin 40mg daily, monitor for adverse reactions. - Continue Metoprolol Tartrate 75mg - Continue Amilodipine BID - Nitro/Morphine PRN - Zio pack in place, will follow up in cardiology clinic # Contrast Induced Nephropathy, kidney function improving - Continue gentle hydration Problems: Pain Evaluation: Adequate Pain Control VTE Prophylaxis: Sub-Q Heparin (Unfractionated) VTE Mechanical Devices: Intermittant Pneumatic CD Resuscitation Status: CPR: Attempt Resuscitation Attending Statement Agree with plan, continue gentle hydration. RACHNA BAJWA DO Apr 29, 2016 10:17 Yo Carter MD Apr 29, 2016 16:43
[2016-04-29] MEDS: 0.9% Sodium Chloride 1,000 ML IV SCH (12:05)
--- NOTE | 2016-04-29 12:20 | NUR ---
Lack of activity Encouraged pt several times to ambulate around unit. Pt stated she would. Pt has not ambulated at this time. Continue to encourage pt to ambulate. Care continues.
--- NOTE | 2016-04-29 15:36 | PCM.PNMED ---
Subjective Date of Service Apr 29, 2016 Subjective Patient is alert and having no problems. She notes a little more edema today and a slight decrease in urinary volume. No dysuria or hematuria. Denies any dyspnea. She denies any chest pain nausea or abdominal pain. Exam Vital Signs Vital Sign - Last Date Time Temp Pulse Resp B/P Pulse Ox O2 Delivery O2 Flow Rate FiO2 04/29/16 11:42 36.6 74 18 102/61 97 Room Air 04/27/16 03:06 4.00 Intake and Output 04/28/16 04/28/16 04/29/16 Cumulative From/Thru 15:00 23:00 07:00 04/22/16 08:23 - 04/29/16 06:29 Intake Total 1200 ml 400 ml 9015 ml Output Total 1200 ml 1100 ml 03890 ml Balance 0 ml -700 ml -8435 ml Intake Oral 1200 ml 400 ml 8640 ml IV Total 375 ml Output Urine Total 1200 ml 1100 ml 14845 ml # Voids 6 # Bowel Movements 7 Exam Alert oriented 3, no distress. Anicteric sclera Lungs are clear with normal effort. Heart is regular without murmur Soft Extremities 1+ edema. Good pedal pulses. IVs and Medications Medications Reviewed: Medications were reviewed in detail Lab and Diagnostics Result Diagram: 04/25/16 0214 04/29/16 0230 Additional Diagnostics Assessment & Plan 70-year-old woman with diabetes, hypertension, morbid obesity and CAD presents with post PCI acute kidney injury (text from Dr. Rosen's previous note) 1. Acute kidney injury, present on admission. This continues to improve. Her creatinine is down again today. Her urine output is also doing well. Probable contrast-induced nephropathy. We will continue her on saline in the 100 mils an hour and continue to follow creatinine with anticipated discharge in 1-2 days. 2. Coronary artery disease, POA. Status post PCI with two-vessel balloon intervention. - Continue dual antiplatelet therapy - Monitor symptoms, she appears to be clinically quiescent. - Cardiology following, she also does have a heart rate monitor on her left chest. This will be on for about 2 weeks. She continues to do well with no evidence of recurrent chest pain. 3. Acute diastolic congestive heart failure. Resolved We will stop active diuresis at this point she appears to be compensated. 4. Type II diabetes mellitus, POA. Recently well controlled. -Continue her current Lantus level and will adjust and add a nutritional lispro dose 5. Hypertension, POA. Controlled. - Continue current medications - amlodipine, atenolol 6. Diabetic neuropathy, POA. - Continue duloxetine Pain Evaluation: Adequate Pain Control VTE Prophylaxis: Sub-Q Heparin (Unfractionated) VTE Mechanical Devices: Intermittant Pneumatic CD Resuscitation Status: CPR: Attempt Resuscitation Time spent 30 minutes Tez Parra MD Apr 29, 2016 15:35
--- NOTE | 2016-04-29 15:41 | PCM.PNMED ---
Subjective Date of Service Apr 29, 2016 Subjective Patient continues to do well. Her intake and output last 24 hours showed 1600 in and 2200 out with the thousand mL solid the first 8 hours of today. Her blood pressure is good and she denies any further chest pain, shortness of breath, cough, wheezing, vomiting, or orthopnea. Spelled her sodium is 139, potassium 3.7, chloride 97, bicarbonate 26, BUN and creatinine were 64 and 2.15. Exam Vital Signs Vital Sign - Last Date Time Temp Pulse Resp B/P Pulse Ox O2 Delivery O2 Flow Rate FiO2 04/29/16 11:42 36.6 74 18 102/61 97 Room Air 04/27/16 03:06 4.00 Intake and Output 04/28/16 04/28/16 04/29/16 Cumulative From/Thru 14:59 22:59 06:59 04/22/16 08:23 - 04/29/16 06:29 Intake Total 1200 ml 400 ml 9015 ml Output Total 1200 ml 1100 ml 59357 ml Balance 0 ml -700 ml -8435 ml Intake Oral 1200 ml 400 ml 8640 ml IV Total 375 ml Output Urine Total 1200 ml 1100 ml 64894 ml # Voids 6 # Bowel Movements 7 Exam Lungs are clear to auscultation. Heart is regular and rhythmic with a soft systolic murmur. Abdomen soft without any tenderness rebound guarding masses or hepatosplenomegaly. Extremities 20 evidence of any clubbing cyanosis or edema. Lab and Diagnostics Result Diagram: 04/25/16 0214 04/29/16 0230 Additional Diagnostics Assessment & Plan Impression #1 acute kidney injury secondary to contrast-induced nephropathy number to diabetic nephropathy #3 hypertension with hypertensive heart disease and hypertensive nephrosclerosis. Recommendations #1 like to continue on her current medical therapy and most likely she can be discharged tomorrow. VTE Prophylaxis: Sub-Q Heparin (Unfractionated) VTE Mechanical Devices: Intermittant Pneumatic CD Resuscitation Status: CPR: Attempt Resuscitation Trevor Velásquez DO Apr 29, 2016 15:41
--- NOTE | 2016-04-29 16:40 | NUR ---
Social Work: Readiness for Discharge D: Pt is on day 7 of stay. Pt discussed in am rounds. Pt is not medically stable for discharge home today. Per nephrology notes, pt will likely be ready for d/c home tomorrow. Pt has been I during admission. SENIOR FINANCIAL REPORTING ANALYST met with pt at bedside to reassess and discuss any unmet needs. Pt denies any at this time and states her spouse will transport her home when medically stable. No sw needs or barriers identified at this time. A: Pt who is I at baseline. P: Anticipate pt to discharge home when pt is medically stable via POV; SENIOR FINANCIAL REPORTING ANALYST to continue to follow if needs arise. IVAN Philippe
[2016-04-29] MEDS: Insulin GLARgine 100 Unit/mL Syringe SUBQ SCH (21:40)
[2016-04-29] MEDS: DULoxetine 30 mg DR Capsule PO SCH (21:41)
[2016-04-30 03:48] VITALS: BP 127/61; PULSE 70; RESP 20; O2SAT 98
--- NOTE | 2016-04-30 05:12 | NUR ---
Activity Pt independent in room, denies dizziness or dyspnea on exertion. Ambulating independently in halls throughout shift. Reports slight cough that she feels is improving; some green sputum produced occasionally. RA, VSS. SR 80s.
[2016-04-30 05:29] VITALS: PULSE 84
[2016-04-30] MEDS: Insulin LISPRO 300 Unit/3 mL Inj SUBQ SCH (08:00)
[2016-04-30 08:03] VITALS: BP 124/72; PULSE 79; RESP 16; O2SAT 97
[2016-04-30] MEDS: 0.9% Sodium Chloride 1,000 ML IV SCH (09:05)
[2016-04-30 09:10] VITALS: PULSE 80
[2016-04-30] MEDS: Sodium Chloride LOK Flush 10 mL Syringe IVFLUSH SCH (09:19)
[2016-04-30] MEDS: Vitamin B Complex/Vit C Tablet PO SCH (09:21)
[2016-04-30] MEDS ORDERED: ZYL100 PO (10:12)
--- NOTE | 2016-04-30 10:15 | PCM.DIMED ---
Discharge Instructions Date of Service Apr 30, 2016 Dates of Hospitalization Apr 22, 2016 at 14:26 Discharge Diagnosis Discharge Diagnosis 1. Acute kidney injury, improving. Probable contrast-induced nephropathy. 2. Coronary artery disease, POA. Status post PCI with two-vessel balloon intervention. 3. Acute diastolic congestive heart failure. Resolved 4. Type II diabetes mellitus, POA. 5. Hypertension, POA. 6. Diabetic neuropathy, POA. Medication Instructions take all medications as prescribed Diet Low fat, Low Sodium, Heart Healthy, Diabetic Activity Limited until seen by PCP, Other (Refer to hospital instruction sheet. Avoid lifting over 10 lbs, vigorous activity for a week. No bathing in a tub for a week. You may shower and clean gently with soap and water to the right groin tomorrow. You may drive starting on Monday. ) Call your provider Fever or Chills, Shortness of breath, Bleeding, Chest pain, Weakness (unilateral ), Other (Numbness tingling or pain in the right leg or foot. Monitor for fever chills. Call this office if any questions.) Patient Instructions Follow-up Provider: Trevor Velásquez DO Follow-up with PCP in: 4 weeks Provider: Yo Carter MD Follow-up in: 2 weeks Mid-level Provider (F9): Dano Palencia PA-C Follow-up with Mid-level in: 2 weeks Tez Parra MD Apr 30, 2016 10:14
[2016-04-30] MEDS ORDERED: METO50TA3 PO (10:37)
--- NOTE | 2016-04-30 11:10 | PCM.PNMED ---
Subjective Date of Service Apr 30, 2016 Subjective Patient's renal function continues to improve. She states she continues to show improvement and has not had any further chest pain, shortness of breath, or difficulty with urination. Her intake and output was 24 hour first 2020 800 out. Her blood pressures have averaged between 90 and 140. This morning her sodium is 143, potassium 4.6, chloride 103, bicarbonate 28, BUN and creatinine 15 and 1.16. Exam Vital Signs Vital Sign - Last Date Time Temp Pulse Resp B/P Pulse Ox O2 Delivery O2 Flow Rate FiO2 04/30/16 10:31 Supplement Oxygen 04/30/16 09:10 80 04/30/16 08:03 36.8 16 124/72 97 04/27/16 03:06 4.00 Intake and Output 04/29/16 04/29/16 04/30/16 Cumulative From/Thru 15:00 23:00 07:00 04/22/16 08:23 - 04/30/16 06:21 Intake Total 1600 ml 2401 ml 44498 ml Output Total 1700 ml 1700 ml 06611 ml Balance -100 ml 701 ml -7834 ml Intake Oral 1600 ml 700 ml 14679 ml IV Total 1701 ml 2076 ml Output Urine Total 1700 ml 1700 ml 67634 ml # Voids 4 10 # Bowel Movements 7 Exam Neck is supple without adenopathy thyromegaly is distention. Lungs are clear to auscultation. Heart is regular rhythm with a soft systolic murmur. Abdomen is soft without any tenderness or rebound guarding masses or hepatosplenomegaly. Lab and Diagnostics Result Diagram: 04/25/16 0214 04/30/16 0325 Additional Diagnostics Assessment & Plan Impression #1 acute kidney injury secondary to contrast-induced nephropathy number to diabetic nephropathy #3 hypertension with hypertensive heart disease and hypertensive nephrosclerosis. Recommendations #1 I discussed the patient's case with Dr. Parra the hospitalist, Dr. Rubi office in approximately 4 weeks and get some blood work about a week before that. Between now and then I would like to reduce her allopurinol to 100 today and upon her follow-up to address her angiotensin blockade. VTE Prophylaxis: Sub-Q Heparin (Unfractionated) VTE Mechanical Devices: Intermittant Pneumatic CD Resuscitation Status: CPR: Attempt Resuscitation Trevor Velásquez DO Apr 30, 2016 11:10
--- NOTE | 2016-04-30 11:39 | PCM.DC.MED ---
Discharge Summary Date of Service Apr 30, 2016 Dates of Hospitalization Date of Hospital Admission Apr 22, 2016 at 14:26 Date of Discharge: Apr 30, 2016 Providers: Admitting Physician: Yo Carter MD Primary Care Physician: Other,Physician Attending Physician: Yo Carter MD Diagnosis at Time of Discharge Diagnosis at Time of Discharge 1. Acute kidney injury, improving. Probable contrast-induced nephropathy. 2. Coronary artery disease, POA. Status post PCI with two-vessel balloon intervention. 3. Acute diastolic congestive heart failure. Resolved 4. Type II diabetes mellitus, POA. 5. Hypertension, POA. 6. Diabetic neuropathy, POA. Consultations Dr. Velásquez, nephrology, Dr. Carter, cardiology Procedures XRay, CTs & MRIs Initial chest x-ray pulmonary edema Subsequent chest x-ray improved edema Renal ultrasound, retroperitoneal revealed normal kidneys sonographically. Invasive Procedures Cardiac PCI, 04/22/2016 1. Left main: No significant disease. 2. LAD is a moderate caliber transapical vessel. It has stents in its mid to proximal portion. These stents are patent. In the mid to distal part there is an eccentric 40% lesion. The first major diagonal has a tight 90% lesion in its ostium. This seems to have progressed. 3. Circumflex is nondominant. The first obtuse marginal branch, which is about a 2 mm vessel, has a long tubular stenosis of 90+%. Previously placed stents in the circumflex are patent as well. 4. Right coronary artery is dominant. It has mild diffuse disease of 20%-30%. PDA has 20%-30% lesion. No critical stenosis is noted. 5. Left heart catheterization revealed an LVEDP of 13. There was no gradient upon pullback. Contractility is preserved. Ejection fraction is estimated to be around 65%. INTERVENTIONAL DETAILS: We then took a Voda guide and placed a Runthrough wire in the diagonal branch and a BMW in the LAD. Balloon inflations with a 2.0 balloon was done in the LAD and then kissing balloon inflations were done. There was a lot of elastic recoil, and not unexpectedly there was also probable dissection in the ostium of the diagonal. This was tackled with prolonged balloon inflations with a 2.25 balloon. Following that, simultaneous kissing balloon inflations were done in the diagonal and the LAD. There was about a 30%-40% residual in the ostium of the LAD; however, I did not want to put a stent in the diagonal and hence accepted this result. We then proceeded ahead with an intervention on the obtuse marginal branch. OM was treated with balloon angioplasty with a 1.5 balloon. I deliberately chose not to stent this small caliber vessel as it would have required a long area of stenting that would have extended all the way up to the ostium of this vessel. Final angiographic results in this vessel were also acceptable. In summary, successful two-vessel balloon angioplasty. Other Diagnostics Brief History Mrs. Callahan is a pleasant 70-year-old woman with PMH of CAD and IDDM. During recent cardiology clinic visit she was found to have an increase in anginal symptoms. PCI on 04/22/16 balloon angioplasty to her LAD, 1st diagonal and first OM. Pt also had probable dissection in the ostium of the diagonal which was tacked with prolonged balloon inflations. No stenting was performed. Hospital Course 1. Acute kidney injury, present on admission. This continues to improve. Her creatinine is down again today. Her urine output is also doing well. Probable contrast-induced nephropathy. We will continue her on saline in the 100 mils an hour and continue to follow creatinine with anticipated discharge in 1-2 days. 2. Coronary artery disease, POA. Status post PCI with two-vessel balloon intervention. - Continue dual antiplatelet therapy - Monitor symptoms, she appears to be clinically quiescent. - Cardiology following, she also does have a heart rate monitor on her left chest. This will be on for about 2 weeks. She continues to do well with no evidence of recurrent chest pain. 3. Acute diastolic congestive heart failure. Resolved We will stop active diuresis at this point she appears to be compensated. 4. Type II diabetes mellitus, POA. Recently well controlled. -Continue her current Lantus level and will adjust and add a nutritional lispro dose 5. Hypertension, POA. Controlled. - Continue current medications - amlodipine, atenolol 6. Diabetic neuropathy, POA. Hospital course. The patient is admitted for evidence of acute kidney injury following her two-vessel balloon angioplasty PTCI. This is felt to be a probable contrast-induced nephropathy. The patient was supported with fluid resuscitation and her medications were renally dosed. She had good urine flow throughout this period and ultimately regained her kidney function. She had evidence of acute and chronic diastolic heart failure and was diuresed without complication. Her pulmonary edema did improve. Her diabetes was followed. Hospitalization as was her blood pressure. On the day of discharge her creatinine had decreased to 1.99 from a high of just over 4.0. Her case is reviewed with nephrology was felt that she was stable for discharge home. She will follow-up with nephrology in about 4 weeks at which point we will institute an CECY inhibitor. Given her recent acute kidney injury will hold until then. In addition her allopurinol will be renally dosed from 300 mg a day before admit to 100 mg a day until follow-up. She had no chest pain during hospitalization. Exam Vital Signs (Last) Date Time Temp Pulse Resp B/P Pulse Ox O2 Delivery O2 Flow Rate FiO2 04/30/16 10:31 Supplement Oxygen 04/30/16 09:10 80 04/30/16 08:03 36.8 16 124/72 97 04/27/16 03:06 4.00 Test 04/22/16 07:58 04/24/16 09:05 04/25/16 02:14 04/26/16 09:24 Triglycerides Level 165mg/dL (0-149) Cholesterol Level 176mg/dL (100-199) LDL Cholesterol, Calculated 87.000mg/dL (0-99) VLDL Cholesterol 33.000mg/dL HDL Cholesterol 56mg/dL (>39) Cholesterol/HDL Ratio 3.14 (0.0-4.4) Pro-B-Type Natriuretic Peptide 5975pg/mL (0-301) White Blood Count 13.1th/mm3 (3.8-10.1) Red Blood Count 3.60mil/mm3 (3.90-5.20) Hemoglobin 10.4g/dL (12.0-15.6) Hematocrit 32.2% (35.0-46.0) Mean Corpuscular Volume 89.4fL (81-100) Mean Corpuscular Hemoglobin 28.9pg (27.0-35.0) Mean Corpuscular Hemoglobin Concent 32.3% (32.0-37.0) Red Cell Distribution Width 18.1% (12.3-15.4) Platelet Count 234bil/L (150-400) Neutrophils (%) (Auto) 75.6% (40-74) Lymphocytes (%) (Auto) 14.4% (14-46) Monocytes (%) (Auto) 7.2% (4-12) Eosinophils (%) (Auto) 2.1% (0-5) Basophils (%) (Auto) 0.5% (0-3) Hemoglobin A1c 7.4% (4.8-5.6) Urine Color Straw (YELLOW) Urine Appearance Hazy (CLEAR,HAZY) Urine pH 6.5 (5.0-8.0) Urine Specific [place] 1.010 (1.003-1.035) Urine Protein Tracemg/dL (NEG,TRACE) Urine Glucose (UA) Negativemg/dL (NEGATIVE) Urine Ketones Negativemg/dL (NEGATIVE) Urine Occult Blood Trace (NEGATIVE) Urine Nitrite Negative (NEGATIVE) Urine Bilirubin Negative (NEGATIVE) Urine Urobilinogen Normalmg/dL (NORMAL) Urine Leukocyte Esterase Negative (NEGATIVE) Urine RBC 0-2/hpf (0-2) Urine WBC 0-5/hpf (0-5) Urine Epithelial Cells Occasional/hpf (NONE-MOD) Urine Crystals None seen (NONE SEEN) Urine Bacteria None/hpf (NONE-FEW) Urine Hyaline Casts None/lpf (NONE) Urine Granular Casts None seen (NONE SEEN) Urine Waxy Casts None seen (NONE SEEN) Urine Red Blood Cell Casts None seen (NONE SEEN) Urine White Blood Cell Casts None seen (NONE SEEN) Urine Mucus None seen (None Seen) Urine Trichomonas None seen (NONE SEEN) Urine Yeast None (NONE SEEN) Urinalysis Comment None Urine Culture Reflexed Not indicated Test 04/26/16 10:38 04/26/16 10:39 04/28/16 02:36 04/29/16 02:30 Urine Random Creatinine 24mg/dL (15-278) Urine Random Sodium 115mEq/L Urine Random Total Protein 31mg/dL (0-15) Albumin 3.5g/dL (3.4-5.0) Phosphorus Level 4.6mg/dL (2.5-4.9) Magnesium Level 1.7mg/dL (1.6-2.6) Test 04/30/16 03:25 Sodium Level 143mEq/L (134-144) Potassium Level 4.6mEq/L (3.5-5.2) Chloride Level 103mEq/L (97-108) Carbon Dioxide Level 28mmol/L (18-29) Blood Urea Nitrogen 50mg/dL (8-27) Creatinine 1.62mg/dL (0.57-1.00) Estimat Glomerular Filtration Rate 45mL/min (>59) Glucose Level 228mg/dL (60-99) Calcium Level 9.3mg/dL (8.5-10.1) Discharge Medications Discharge Medications ([Vitamin B-12]) 1 TABLET PO DAILY (Reported) Allopurinol (Allopurinol) 100 Mg Tablet 100 MG PO DAILY Prescribed by: TEZ SALMERON MD Amlodipine (Amlodipine) 5 Mg Tablet 10 MG PO DAILY (Reported) Aspirin (Aspirin) 81 Mg Tablet 81 MG PO DAILY (Reported) Atorvastatin (Lipitor) 40 Mg Tablet 40 MG PO DAILY Prescribed by: ALIYA BOYD Clopidogrel Bisulfate (Plavix) 75 Mg Tablet 75 MG PO DAILY (Reported) Duloxetine (Cymbalta) 60 Mg Capsule.dr 60 MG PO DAILY (Reported) Insulin Lispro (HumaLOG U100 Insulin Pen) 100 Unit/1 Ml Insuln.pen 25 UNIT SUBQ TIDAC (Reported) Blood Sugar Lispro Correction <151 0 units 151-175 1 unit 176-200 2 units 201-225 3 units 226-250 4 units 251-275 5 units 276-300 6 units 301-325 7 units 326-350 8 units 351-375 9 units 376-400 10 units >400 12 units Check blood sugars before meals and at bedtime. Use correction factor only before meals. Metoprolol Tartrate (Metoprolol Tartrate) 50 Mg Tablet 75 MG PO BID Prescribed by: TEZ SALMERON MD Ubidecarenone (Co Q-10) 200 Mg Capsule 200 MG PO DAILY (Reported) As needed Famotidine (Famotidine) 40 Mg Tablet 40 MG PO BID PRN PRN For Dyspepsia or Heartburn (Reported) Nitroglycerin SL (Nitrostat) 0.4 Mg Tab.subl 0.4 MG SL Q5MIN PRN PRN For Chest Pain (Reported) Additional med instructions take all medications as prescribed Followup Plan Disposition: Home Discharge Diet: Low fat, Low Sodium, Heart Healthy, Diabetic Discharge Activity: Limited until seen by PCP, Other (Refer to hospital instruction sheet. Avoid lifting over 10 lbs, vigorous activity for a week. No bathing in a tub for a week. You may shower and clean gently with soap and water to the right groin tomorrow. You may drive starting on Monday. ) Follow-up Provider: Trevor Velásquez DO Follow-up with PCP in: 4 weeks Provider: Yo Carter MD Follow-up in: 2 weeks Mid-level Provider: Dano Palencia PA-C Follow-up with Mid-level in: 2 weeks Time spent 40 minutes Tez Salmeron MD Apr 30, 2016 11:39
--- NOTE | 2016-04-30 12:30 | NUR ---
Discharge Pt discharged home today at 12:30. Pt off floor via wheelchair with all of her belongings in the company of and nurse to private vehicle. Pt was provided prescriptions, follow up info and ed materials on GILES, H/H diet, and post cath instructions. Pt voiced understanding.
== END 2016-04-30 12:30 | disposition home or self-care (01) | DRG 981 ==
LOC: SOUO 01:22 → PCC 14:26 → UNDOADMOB 14:26 → PCC 14:26 → SOUO 14:26
PROVIDERS: ADMIT Internal Medicine Cardiovascular Disease; ATTEND Internal Medicine Cardiovascular Disease
PROC: 02723ZZ Dilation of Coronary Artery, Three Arteries, Percutaneous Approach (ICD-10-PCS; principal; 2016-04-22)
PROC: 4A023N7 Measurement of Cardiac Sampling and Pressure, Left Heart, Percutaneous Approach (ICD-10-PCS; 2016-04-22)
PROC: B211YZZ Fluoroscopy of Multiple Coronary Arteries using Other Contrast (ICD-10-PCS; 2016-04-22)
DX: N99.0 Postprocedural (acute) (chronic) kidney failure (principal); I50.33 Acute on chronic diastolic (congestive) heart failure; I25.42 Coronary artery dissection; N17.9 Acute kidney failure, unspecified; N14.1 Nephropathy induced by other drugs, medicaments and biological substances; T50.8X5A Adverse effect of diagnostic agents, initial encounter; E87.5 Hyperkalemia; I25.10 Atherosclerotic heart disease of native coronary artery without angina pectoris; I10 Essential (primary) hypertension; Z98.61 Coronary angioplasty status; Z79.82 Long term (current) use of aspirin; Z79.4 Long term (current) use of insulin; E11.40 Type 2 diabetes mellitus with diabetic neuropathy, unspecified; E11.319 Type 2 diabetes mellitus with unspecified diabetic retinopathy without macular edema; G47.33 Obstructive sleep apnea (adult) (pediatric)